=== PATIENT | female | born 1960 | race American Indian/Alaskan Native ===

== ENCOUNTER 2018-12-18 12:09 | Inpatient (IN) | payer MEDICAID, OTHER ==
--- NOTE | 2018-12-18 12:55 | Emergency Department Report ---
HPI - General Chief Complaint: Chest Pain Time Seen by Provider: 12/18/18 12:40 - HPI HPI: Room 3 The patient is a 58-year-old female presenting with a chief complaint of chest pain. Patient states her symptoms began this morning at 04:00 with pain in the left chest described as dull in nature. Patient admits to shortness of breath nausea vomiting with her chest pain but denies diaphoresis. She gets her pain score 10/10. The patient is currently at [facility] for depression after the recent of a family member. Patient states she's never had a stress test or cardiac catheterization Location: Left chest Duration: Constant since 04:00 Quality: Dull Severity: 10/10 Modifying factors: [see above] Context: [see above] Mode of transportation: [not driving] ED Past Medical Hx - Past Medical History Previous Medical History?: Yes Hx Hypertension: Yes Hx Congestive Heart Failure: Yes (with pitting edema) Hx Pulmonary Embolism: Yes (2016) Hx Arthritis: Yes Hx Psychiatric Treatment: Yes (A/V hallucinations, drug use, [place]) Additional medical history: gout - Surgical History Past Surgical History?: Yes Additional Surgical History: tumor left breast, hysterectomy - Family History Family history: no significant - Social History Smoking Status: Never Smoker Substance Use Type: None (denies illicit drug use) - Medications Home Medications: Home Medications Medication Instructions Recorded Confirmed Last Taken Type Amitriptyline [Elavil] 100 mg PO QHS 03/17/15 12/18/18 03/16/15 History Torsemide [Demadex] 100 mg PO QDAY 03/17/15 12/18/18 03/17/15 History Carvedilol [Coreg] 6.25 mg PO BID 12/18/18 12/18/18 Unknown History Gabapentin [Neurontin] 300 mg PO Q8HR 12/18/18 12/18/18 Unknown History Potassium Chloride [K-Dur] 20 meq PO QDAY 12/18/18 12/18/18 Unknown History Rivaroxaban [Xarelto] 20 mg PO QDAY 12/18/18 12/18/18 Unknown History Ziprasidone [Geodon] 60 mg PO BID 12/18/18 12/18/18 Unknown History traZODone [Desyrel] 50 mg PO QHS 12/18/18 12/18/18 Unknown History ED Review of Systems ROS: Stated complaint: CHEST PAIN Other details as noted in HPI Constitutional: denies: diaphoresis Eyes: denies: eye pain ENT: denies: throat pain Respiratory: shortness of breath Cardiovascular: chest pain Endocrine: no symptoms reported Gastrointestinal: nausea, vomiting Genitourinary: denies: dysuria Musculoskeletal: denies: back pain Neurological: denies: headache Physical Exam - Physical Exam Vital Signs: Vital Signs 12/18/18 12:18 Temperature 98.2 F Physical Exam: GENERAL: The patient is well-developed well-nourished female lying on stretcher not appear to be in acute distress. HEENT: Normocephalic. Atraumatic. Extraocular motions are intact. Patient has moist mucous membranes. NECK: Supple. Trachea midline CHEST/LUNGS: Clear to auscultation. There is no respiratory distress noted. HEART/CARDIOVASCULAR: Regular. There is no tachycardia. There is no gallop rub or murmur. ABDOMEN: Abdomen is soft, nontender. Patient has normal bowel sounds. There is no abdominal distention. SKIN: There is no rash. There is 1+ bilateral lower extremity pitting edema. There is no diaphoresis. NEURO: The patient is awake, alert, and oriented. The patient is cooperative. The patient has normal speech MUSCULOSKELETAL: There is no evidence of acute injury. ED Course Vital Signs 12/18/18 12:18 Temperature 98.2 F ED Medical Decision Making - Lab Data Result diagrams: 12/18/18 12:49 12/18/18 12:49 - EKG Data -: EKG Interpreted by Me EKG shows normal: sinus rhythm Rate: normal - EKG Data When compared to previous EKG there are: previous EKG unavailable Interpretation: normal EKG - Radiology Data Radiology results: report reviewed (chest x-ray, CT chest), image reviewed (chest x-ray, CT chest) interpreted by me: Chest x-ray-no focal infiltrates, no pneumothorax [facility] [address] [place] [address] XRay Report Signed Patient: DAWOOD DAVID MR#: [id number] : 1960 Acct:[id number] Age/Sex: 58 / F ADM Date: 12/18/18 Loc: ED Attending Dr: Ordering Physician: REJI DAS MD Date of Service: 12/18/18 Procedure(s): XR chest 1V ap Accession Number(s): [id number] cc: REJI DAS MD Fluoro Time In Minutes: AP CHEST: HISTORY: chest pain AP view of the chest demonstrates a normal mediastinal and cardiac contour with clear lungs and normal bony and soft tissue structures. IMPRESSION: Unremarkable AP chest. Transcribed By: TTR Dictated By: KYM ALAN JR, MD Electronically Authenticated By: KYM ALAN JR, MD Signed Date/Time: 12/18/181313 DD/ TD/TT: 12/18/18 131 [facility] [address] [place] [address] Cat Scan Report Signed Patient: DAWOOD DAVID MR#: [id number] : 1960 Acct:[id number] Age/Sex: 58 / F ADM Date: 12/18/18 Loc: ED Attending Dr: Ordering Physician: REJI DAS MD Date of Service: 12/18/18 Procedure(s): CT angio chest Accession Number(s): [id number] cc: REJI DAS MD CTA CHEST: HISTORY: Chest pain, shortness of breath. COMPARISON: 03/18/15. TECHNIQUE: Helical CT in 1.25mm intervals following IV contrast. Pulmonary embolus protocol. Sagittal and coronal reformatted images. Rotational MIP images. FINDINGS: Contrast bolus is satisfactory. No pulmonary embolus is identified. Thyroid gland: Normal. Tracheobronchial tree: Normal. Esophagus: Normal. Heart: Normal. Pericardium: Normal. Mediastinum: Normal. Lung [place]: Minor linear scarring or atelectasis is noted in the lower lobes. No parenchymal lung disease, nodule or infiltrate. Pleural Spaces: Normal. Musculoskeletal: Intact. Mild thoracic spondylosis. IMPRESSION: No evidence for pulmonary embolus. Unremarkable CT chest with contrast. Transcribed By: TTR Dictated By: KYM ALAN JR, MD Electronically Authenticated By: KYM ALAN JR, MD Signed Date/Time: 12/18/181511 DD/ 09 TD/TT: 12/18/181511 - Differential Diagnosis ACS, pericarditis, CHF exacerbation, GERD, PE Critical care attestation.: If time is entered above; I have spent that time in minutes in the direct care of this critically ill patient, excluding procedure time. ED Disposition Clinical Impression: Chest pain Disposition: OP ADMIT IP TO THIS HOSP Is pt being admited?: Yes Does the pt Need Aspirin: Yes Condition: Fair Instructions: Chest Pain (ED) Time of Disposition: 15:18 (hospitalist paged (Dr Encarnacion))
[2018-12-18] MEDS ORDERED: ZOFRAN IV ONE (12:57)
[2018-12-18] MEDS ORDERED: NITRO-BID 2% TP ONE (12:57)
[2018-12-18] MEDS ORDERED: SUBLIMAZE IV ONE (12:57)
[2018-12-18] MEDS ORDERED: ASPIRIN PO ONE (12:59)
[2018-12-18 13:01] LABS: Basophils # (Auto) 0.1 K/mm3 (0.0-0.1); Basophils % (Auto) 1.3 % (0.0-1.8); Eosinophils # (Auto) 0.2 K/mm3 (0.0-0.4); Eosinophils % (Auto) 5.1 % (0.0-4.3); Hematocrit 40.9 % (30.3-42.9); Hemoglobin 13.7 gm/dl (10.1-14.3); Lymphocytes # (Auto) 1.4 K/mm3 (1.2-5.4); Lymphocytes % (Auto) 30.1 % (13.4-35.0); Mean Corpuscular HGB Conc 34 % (30-34); Mean Corpuscular Volume 92 fl (79-97); Monocytes # (Auto) 0.4 K/mm3 (0.0-0.8); Monocytes % (Auto) 8.9 % (0.0-7.3); Platelet Count 200 K/mm3 (140-440); Red Blood Count 4.44 M/mm3 (3.65-5.03)
--- NOTE | 2018-12-18 13:18 | XRay Report ---
AP CHEST: HISTORY: chest pain AP view of the chest demonstrates a normal mediastinal and cardiac contour with clear lungs and normal bony and soft tissue structures. IMPRESSION: Unremarkable AP chest.
[2018-12-18 13:28] LABS: Alanine Aminotransferase 11 units/L (7-56); Albumin 4.1 g/dL (3.9-5); BUN/Creatinine Ratio 27; Blood Urea Nitrogen 19 mg/dL (7-17); Calcium 9.2 mg/dL (8.4-10.2); Hemolysis Index 8
[2018-12-18 13:28] LABS: Bacteria,Urine 1+ /HPF (Negative); Bilirubin,Urine NEG (Negative); Blood,Urine SM (Negative); Color,Urine Colorless (Yellow); Mucus,Urine FEW /HPF; Protein,Urine <15 mg/dL mg/dL (Negative); Urobilinogen,Urine < 2.0 mg/dL (<2.0); WBC,Urine < 1.0 /HPF (0.0-6.0)
--- NOTE | 2018-12-18 15:16 | Cat Scan Report ---
CTA CHEST: HISTORY: Chest pain, shortness of breath. COMPARISON: 03/18/15. TECHNIQUE: Helical CT in 1.25mm intervals following IV contrast. Pulmonary embolus protocol. Sagittal and coronal reformatted images. Rotational MIP images. FINDINGS: Contrast bolus is satisfactory. No pulmonary embolus is identified. Thyroid gland: Normal. Tracheobronchial tree: Normal. Esophagus: Normal. Heart: Normal. Pericardium: Normal. Mediastinum: Normal. Lung [place]: Minor linear scarring or atelectasis is noted in the lower lobes. No parenchymal lung disease, nodule or infiltrate. Pleural Spaces: Normal. Musculoskeletal: Intact. Mild thoracic spondylosis. IMPRESSION: No evidence for pulmonary embolus. Unremarkable CT chest with contrast.
--- NOTE | 2018-12-18 22:23 | Event Note ---
Date: 12/18/18 See H/p inreports Chest pain r/o ND Positive Stress test at [facility] in AM
[2018-12-18] MEDS ORDERED: SODIUM CHLORIDE FLUSH SYRINGE 10 ML IV PRN (22:25)
[2018-12-18] MEDS ORDERED: TYLENOL PO PRN (22:25)
[2018-12-18] MEDS ORDERED: ZOFRAN IV PRN (22:25)
[2018-12-18] MEDS: COREG PO SCH (23:36)
[2018-12-18] MEDS: PERCOCET 5/325 PO PRN (23:37)
[2018-12-18] MEDS: PEPCID IV SCH (23:37)
[2018-12-18] MEDS: NEURONTIN PO SCH (23:37)
[2018-12-18] MEDS ORDERED: ELAVIL PO SCH (23:45)
[2018-12-18] MEDS: DESYREL PO SCH (23:53)
[2018-12-18] MEDS: GEODON PO SCH (23:54)
[2018-12-19 06:16] LABS: Basophils % (Auto) 0.5 % (0.0-1.8); Eosinophils # (Auto) 0.3 K/mm3 (0.0-0.4); Eosinophils % (Auto) 5.7 % (0.0-4.3); Hematocrit 39.4 % (30.3-42.9); Hemoglobin 13.1 gm/dl (10.1-14.3); Lymphocytes # (Auto) 1.7 K/mm3 (1.2-5.4); Mean Corpuscular HGB Conc 33 % (30-34); Mean Corpuscular Volume 93 fl (79-97); Monocytes # (Auto) 0.6 K/mm3 (0.0-0.8); Monocytes % (Auto) 12.4 % (0.0-7.3); Platelet Count 185 K/mm3 (140-440); Red Blood Count 4.24 M/mm3 (3.65-5.03); Red Cell Distribution Width 16.2 % (13.2-15.2)
[2018-12-19] MEDS: NEURONTIN PO SCH ×3 (06:36→21:46)
[2018-12-19] MEDS: DEMADEX PO SCH (06:36)
[2018-12-19 06:38] LABS: Alanine Aminotransferase 10 units/L (7-56); BUN/Creatinine Ratio 25; Blood Urea Nitrogen 28 mg/dL (7-17); Calcium 8.8 mg/dL (8.4-10.2); Hemolysis Index 13
--- NOTE | 2018-12-19 07:23 | History and Physical Report ---
CHIEF COMPLAINT: Left-sided chest pain since 4 a.m. HISTORY OF PRESENT ILLNESS: A 58-year-old female presents with left-sided chest pain since 4 a.m. The patient went to [facility] Heart office. DICTATION ENDS HERE. JOB# [id number] ERNESTINA/FRANCHESKA
--- NOTE | 2018-12-19 07:30 | History and Physical Report ---
CHIEF COMPLAINT: Left-sided chest pain since 4:00 a.m. HISTORY OF PRESENT ILLNESS: A 48-year-old female, who comes in for left-sided chest pain since 4:00 a.m. ____. Associated with nausea. No diaphoresis, no palpitations. The pain is about 10/10, intermittent in nature. She was recently admitted to [place] for depression after the of a family member. No stress test. Cardiac catheterization in the past. No exacerbating or precipitating factors. PAST MEDICAL HISTORY: Significant for hypertension, CHF, pulmonary embolism, arthritis, psychiatric treatment for auditory and visual hallucinations, drug use, gout. PAST SURGICAL HISTORY: Tumor, left breast and hysterectomy. SOCIAL HISTORY: Does not smoke. No alcohol or drugs. FAMILY HISTORY: Hypertension. CURRENT MEDICATIONS: Coreg 6.25 b.i.d., Xarelto 20 mg once a day, Geodon 60 mg twice a day, trazodone 50 mg at bedtime, amitriptyline 100 mg p.o. at bedtime, and Demadex 100 mg once a day. REVIEW OF SYSTEMS: Significant for left-sided chest pain. No shortness of breath. A 14-point review of systems done. PHYSICAL EXAMINATION: GENERAL: Young elderly female. VITAL SIGNS: Blood pressure is 107/71, temperature is 97.9, pulse is 82, and respiratory rate is 20. HEENT: Unremarkable. Pupils are equal and reactive. NECK: Supple, no lymphadenopathy, no thyromegaly. LUNGS: Clear to auscultation and percussion. Good air entry. CARDIOVASCULAR: S1, S2 heard. No gallop, no murmur, no rub. Apical impulse in left fifth intercostal space and midclavicular line. ABDOMEN: Soft and benign. No hepatosplenomegaly. No guarding, no rigidity. Hernial orifices are normal. EXTREMITIES: Good pedal pulses. No pedal edema. CENTRAL NERVOUS SYSTEM: Alert and oriented x4, nonfocal exam. SKIN: Normal. LABORATORY DATA: Significant for white count of 4800, H and H are 13.7 and hematocrit of 40.9, and platelet count of 200,000. Sodium of 143, potassium of 3.7, chloride of 102, bicarbonate of 25, and BUN and creatinine of 19 and 0.7. LFTs are normal. Urine is normal. EKG shows normal sinus rhythm, no acute ST-T wave changes. Chest x-ray shows no focal infiltrates, no pneumothorax. CT chest is normal. No pulmonary embolism. ASSESSMENT AND PLAN: 1. Chest pain, rule out myocardial infarction, chest pain protocol. Lexiscan in the morning. 2. Hypertension. Continue carvedilol. 3. Peripheral neuropathy. Continue gabapentin. 4. Anticoagulation, reason not clear. Continue Xarelto. 5. Depression. Continue trazodone and Geodon. 6. Deep venous thrombosis prophylaxis, Lovenox 40 mg subcutaneous daily. We will get echocardiogram for ejection fraction. The patient is on torsemide. Unclear about congestive heart failure status. JOB# [id number] ERNESTINA/FRANCHESKA
[2018-12-19] MEDS ORDERED: TORSEMIDE 100 MG PO SCH (10:00)
--- NOTE | 2018-12-19 10:27 | Discharge Summary ---
Providers - Providers Date of Admission: 12/18/18 15:20 Attending physician: ISAURA CAMPUZANO MD Primary care physician: VIBRATOR OPERATOR Hospitalization Reason for admission: chest pain Condition: Stable Hospital course: The patient is a 48-year-old female with past medical history of congestive heart failure, hypertension, history of pulmonary embolism, bilateral knee antr itis, depression previous history of psychosis with VISUAL HALLUCINATION, GOUT AND DRUG USE PRESENTED TO THE HOSPITAL COMPLAINTS OF SHORTNESS OF BREATH WITH ASSOCIATED CHEST DISCOMFORT. PATIENT PRESENTED TO HAVE A STRESS TEST THAT WAS NEGATIVE. SHE INSISTS THAT HER PAIN IS STILL PRESENT AT THIS 6/10 INTENSITY AND IS not WITH NO AGGRAVATED EVENTS. SHE REPORTS THAT THIS ALWAYS HAPPENS WHEN SHE HAS MULTIPLE FLUIDS AND HER BODY THAN NORMAL. The patient was treated with IV Lasix reported improvement in clinical status. Although renal functioning increased patient received gentle hydration prior to discharge recommended to follow-up with primary care physician continue to lose weight and have a repeat BNP in 2-3 days. Patient verbalized understanding. Atypical chest likely secondary to underlying congestive heart failure Congestive heart failure presumed systolic Depression Hypertension Morbid obesity BMI 53.8 [place] secondary to vasomotor nephropathy Disposition: TO HOME OR SELFCARE Time spent for discharge: 35 MINS Core Measure Documentation - Palliative Care Palliative Care/ Comfort Measures: Not Applicable - Core Measures Any of the following diagnoses?: none Exam - Physical Exam Narrative exam: VITAL SIGNS: Reviewed. GENERAL: The patient appeared well nourished and normally developed, morbidly obese. Vital signs as documented. HEAD: No signs of head trauma. EYES: Pupils are equal. Extraocular motions intact. EARS: Hearing grossly intact. MOUTH: Oropharynx is normal. NECK: No adenopathy, no JVD. CHEST: Chest with clear breath sounds bilaterally. No wheezes, rales, or rhonchi. CARDIAC: Regular rate and rhythm. S1 and S2, without murmurs, gallops, or rubs. VASCULAR: Trace pitting Edema. Peripheral pulses normal and equal in all extremities. ABDOMEN: Soft, non tender and non distended. No rebound or guarding, and no masses palpated. Bowel Sounds normal. MUSCULOSKELETAL: Good range of motion of all major joints. Extremities without clubbing, cyanosis. Trace pitting edema. NEUROLOGIC EXAM: Alert and oriented x 3 No focal sensory or strength deficits. Speech normal. Follows commands. PSYCHIATRIC: Mood normal. SKIN: No rash or lesions. - Constitutional Vitals: Temp Pulse Resp BP Pulse Ox 97.9 F 79 20 119/80 92 12/19/18 07:59 12/19/18 07:59 12/19/18 07:59 12/19/18 07:59 12/19/18 07:59 Plan Activity: advance as tolerated, fall precautions Diet: low fat Special Instructions: record daily weights, record daily BP diary Follow up with: PRIMARY CARE, [Primary Care Provider] - 3-5 Days Forms: Discharge Signature Page Prescriptions: oxyCODONE /ACETAMINOPHEN [Percocet 5/325 mg] 1 tab PO Q6H PRN #14 tablet PRN Reason: Pain, Moderate (4-6)
[2018-12-19] MEDS: PEPCID IV SCH (11:09)
[2018-12-19] MEDS ORDERED: LEXISCAN IV ONE ×2 (11:19→11:20)
[2018-12-19] MEDS ORDERED: AFLURIA QUAD 2018-2019 SYRINGE IM ONE (12:00)
[2018-12-19] MEDS ORDERED: PNEUMOVAX 23 IM ONE (12:00)
[2018-12-19] MEDS: COREG PO SCH ×2 (12:59→21:46)
[2018-12-19] MEDS: XARELTO PO SCH (12:59)
[2018-12-19] MEDS: PEPCID PO SCH ×2 (12:59→21:46)
[2018-12-19] MEDS: K-DUR PO SCH (12:59)
[2018-12-19] MEDS: GEODON PO SCH ×2 (13:00→21:45)
[2018-12-19] MEDS: SODIUM CHLORIDE FLUSH SYRINGE 10 ML IV SCH ×2 (13:00→21:47)
[2018-12-19] MEDS: PERCOCET 5/325 PO PRN (13:59)
[2018-12-19] MEDS ORDERED: PERCOCET 5/325 PO PRN (15:33)
--- NOTE | 2018-12-19 15:33 | Progress Note ---
Assessment and Plan Assessment and plan: The patient is a 48-year-old female with past medical history of congestive heart failure, hypertension, history of pulmonary embolism, bilateral knee antritis, depression previous history of psychosis with VISUAL HALLUCINATION, GOUT AND DRUG USE PRESENTED TO THE HOSPITAL COMPLAINTS OF SHORTNESS OF BREATH WITH ASSOCIATED CHEST DISCOMFORT. PATIENT PRESENTED TO HAVE A STRESS TEST THAT WAS NEGATIVE. SHE INSISTS THAT HER PAIN IS STILL PRESENT AT THIS 6/10 INTENSITY AND IS not WITH NO AGGRAVATED EVENTS. SHE REPORTS THAT THIS ALWAYS HAPPENS WHEN SHE HAS MULTIPLE FLUIDS AND HER BODY THAN NORMAL. Atypical chest likely secondary to underlying congestive heart failure Congestive heart failure presumed systolic Depression Hypertension Morbid obesity BMI 53.8 Plan at this time Continue supportive care Heart failure protocol Patient Lasix 40 mg every 8 monitor renal function Continue medications Weightloss counselling, patient reports loss of 20 pounds and working on the rest bedSide commode Anticipate discharge in am plan discussed with patient adn nursing staff. History Interval history: Patient is examined this morning complaints of shortness of breath AND Lower ext edema. she states she is 7 pound over her baseline dry weight. Hospitalist Physical - Physical exam Narrative exam: VITAL SIGNS: Reviewed. GENERAL: The patient appeared well nourished and normally developed, morbidly obese. Vital signs as documented. HEAD: No signs of head trauma. EYES: Pupils are equal. Extraocular motions intact. EARS: Hearing grossly intact. MOUTH: Oropharynx is normal. NECK: No adenopathy, no JVD. CHEST: Chest with clear breath sounds bilaterally. No wheezes, rales, or rhonchi. CARDIAC: Regular rate and rhythm. S1 and S2, without murmurs, gallops, or rubs. VASCULAR: Trace pitting Edema. Peripheral pulses normal and equal in all extremities. ABDOMEN: Soft, non tender and non distended. No rebound or guarding, and no masses palpated. Bowel Sounds normal. MUSCULOSKELETAL: Good range of motion of all major joints. Extremities without clubbing, cyanosis. Trace pitting edema. NEUROLOGIC EXAM: Alert and oriented x 3 No focal sensory or strength deficits. Speech normal. Follows commands. PSYCHIATRIC: Mood normal. SKIN: No rash or lesions. - Constitutional Vitals: Temp Pulse Resp BP Pulse Ox 97.9 F 79 20 127/75 92 12/19/18 07:59 12/19/18 07:59 12/19/18 07:59 12/19/18 11:37 12/19/18 07:59 Results - Labs CBC & Chem 7: 12/19/18 05:57 12/19/18 05:57 Labs: Laboratory Last Values WBC 4.6 K/mm3 (4.5-11.0) 12/19/18 05:57 RBC 4.24 M/mm3 (3.65-5.03) 12/19/18 05:57 Hgb 13.1 gm/dl (10.1-14.3) 12/19/18 05:57 Hct 39.4 % (30.3-42.9) 12/19/18 05:57 MCV 93 fl (79-97) 12/19/18 05:57 MCH 31 pg (28-32) 12/19/18 05:57 MCHC 33 % (30-34) 12/19/18 05:57 RDW 16.2 % (13.2-15.2) H 12/19/18 05:57 Plt Count 185 K/mm3 (140-440) 12/19/18 05:57 Lymph % (Auto) 37.0 % (13.4-35.0) H 12/19/18 05:57 [place] % (Auto) 12.4 % (0.0-7.3) H 12/19/18 05:57 Eos % (Auto) 5.7 % (0.0-4.3) H 12/19/18 05:57 Baso % (Auto) 0.5 % (0.0-1.8) 12/19/18 05:57 Lymph # 1.7 K/mm3 (1.2-5.4) 12/19/18 05:57 [place] # 0.6 K/mm3 (0.0-0.8) 12/19/18 05:57 Eos # 0.3 K/mm3 (0.0-0.4) 12/19/18 05:57 Baso # 0.0 K/mm3 (0.0-0.1) 12/19/18 05:57 Seg Neutrophils % 44.4 % (40.0-70.0) 12/19/18 05:57 Seg Neutrophils # 2.1 K/mm3 (1.8-7.7) 12/19/18 05:57 D-Dimer 4194.10 ng/mlDDU (0-234) H 12/18/18 12:49 Sodium 140 mmol/L (137-145) 12/19/18 05:57 Potassium 4.1 mmol/L (3.6-5.0) 12/19/18 05:57 Chloride 99.5 mmol/L (98-107) 12/19/18 05:57 Carbon Dioxide 27 mmol/L (22-30) 12/19/18 05:57 Anion Gap 18 mmol/L 12/19/18 05:57 BUN 28 mg/dL (7-17) H 12/19/18 05:57 Creatinine 1.1 mg/dL (0.7-1.2) D 12/19/18 05:57 Estimated GFR > 60 ml/min 12/19/18 05:57 BUN/Creatinine Ratio 25 % 12/19/18 05:57 Glucose 107 mg/dL (65-100) H 12/19/18 05:57 Calcium 8.8 mg/dL (8.4-10.2) 12/19/18 05:57 Total Bilirubin 0.20 mg/dL (0.1-1.2) 12/19/18 05:57 AST 13 units/L (5-40) 12/19/18 05:57 ALT 10 units/L (7-56) 12/19/18 05:57 Alkaline Phosphatase 67 units/L (35-129) 12/19/18 05:57 Troponin T < 0.010 ng/mL (0.00-0.029) 12/19/18 05:57 Total Protein 7.1 g/dL (6.3-8.2) 12/19/18 05:57 Albumin 4.0 g/dL (3.9-5) 12/19/18 05:57 Albumin/Globulin Ratio 1.3 % 12/19/18 05:57 Urine Color Colorless (Yellow) 12/18/18 12:53 Urine Turbidity Clear (Clear) 12/18/18 12:53 Urine pH 5.0 (5.0-7.0) 12/18/18 12:53 Ur Specific [place] 1.004 (1.003-1.030) 12/18/18 12:53 Urine Protein <15 mg/dl mg/dL (Negative) 12/18/18 12:53 Urine Glucose (UA) Neg mg/dL (Negative) 12/18/18 12:53 Urine Ketones Neg mg/dL (Negative) 12/18/18 12:53 Urine Blood Sm (Negative) 12/18/18 12:53 Urine Nitrite Neg (Negative) 12/18/18 12:53 Urine Bilirubin Neg (Negative) 12/18/18 12:53 Urine Urobilinogen < 2.0 mg/dL (<2.0) 12/18/18 12:53 Ur Leukocyte Esterase Neg (Negative) 12/18/18 12:53 Urine WBC (Auto) < 1.0 /HPF (0.0-6.0) 12/18/18 12:53 Urine RBC (Auto) 1.0 /HPF (0.0-6.0) 12/18/18 12:53 U Epithel Cells (Auto) 1.0 /HPF (0-13.0) 12/18/18 12:53 Urine Bacteria (Auto) 1+ /HPF (Negative) 12/18/18 12:53 Urine Mucus Few /HPF 12/18/18 12:53 Active Medications - Current Medications Current Medications: Generic Name Dose Route Start Last Admin Trade Name Freq PRN Reason Stop Dose Admin Acetaminophen 650 mg 12/18/18 22:25 Tylenol PO Q4H PRN Pain MILD(1-3)/Fever >100.5/MARQUEZ Carvedilol 6.25 mg 12/18/18 23:00 12/19/18 12:59 Coreg PO 6.25 mg BID JUSTUS Administration Famotidine 20 mg 12/19/18 11:00 12/19/18 12:59 Pepcid PO 20 mg BID JUSTUS Administration Gabapentin 300 mg 12/18/18 23:00 12/19/18 13:53 Neurontin PO 300 mg Q8HR JUSTUS Administration Ondansetron HCl 4 mg 12/18/18 22:25 Zofran IV Q8H PRN Nausea And Vomiting Potassium Chloride 20 meq 12/19/18 10:00 12/19/18 12:59 K-Dur PO 20 meq QDAY JUSTUS Administration Rivaroxaban 20 mg 12/19/18 10:00 12/19/18 12:59 Xarelto PO 20 mg QDAY JUSTUS Administration Protocol Sodium Chloride 10 ml 12/19/18 10:00 12/19/18 13:00 Sodium Chloride Flush Syringe 10 Ml IV 10 ml BID JUSTUS Administration Sodium Chloride 10 ml 12/18/18 22:25 Sodium Chloride Flush Syringe 10 Ml IV PRN PRN LINE FLUSH Torsemide 100 mg 12/19/18 06:00 12/19/18 06:36 Demadex PO 100 mg DAILY@0600 JUSTUS Administration Trazodone HCl 50 mg 12/18/18 23:45 12/18/18 23:53 Desyrel PO 50 mg QHS JUSTUS Administration Ziprasidone 60 mg 12/18/18 23:00 12/19/18 13:00 Geodon PO 60 mg BID JUSTUS Administration
[2018-12-19] MEDS: LASIX IV SCH (17:18)
[2018-12-19] MEDS: DESYREL PO SCH (21:45)
[2018-12-19] MEDS ORDERED: AMITRIPTYLINE 100 MG PO SCH (22:00)
--- NOTE | 2018-12-19 22:25 | Treadmill Report ---
THALLIUM STRESS TEST LEFT VENTRICLE: Left ventricular chamber size is within normal spread. Perfusion study demonstrates homogeneous uptake of the tracer in all segments, no significant defects identified. Gated analysis demonstrates normal left ventricular systolic function, ejection fraction 58%. CONCLUSION: Normal myocardial perfusion study. JOB# [id number] CA/NTS
[2018-12-20] MEDS: LASIX IV SCH ×2 (00:55→05:49)
[2018-12-20] MEDS: NEURONTIN PO SCH ×2 (05:49→14:05)
[2018-12-20 06:16] LABS: Calcium 8.7 mg/dL (8.4-10.2)
[2018-12-20] MEDS: DEMADEX PO SCH (08:02)
[2018-12-20 08:39] VITALS: BP 149/97
[2018-12-20] MEDS: K-DUR PO SCH (09:49)
[2018-12-20] MEDS: XARELTO PO SCH (09:49)
[2018-12-20] MEDS: COREG PO SCH (09:49)
[2018-12-20] MEDS: GEODON PO SCH (09:49)
[2018-12-20] MEDS: PEPCID PO SCH (09:50)
[2018-12-20] MEDS: SODIUM CHLORIDE FLUSH SYRINGE 10 ML IV SCH (09:50)
[2018-12-20] MEDS ORDERED: NACL 0.9% 250ML 250 ML IV ONE (12:30)
== END 2018-12-20 14:00 | disposition home or self-care (01) | DRG 291 ==
LOC: ED 12:09 → 4A 15:20
PROVIDERS: ADMIT Internal Medicine; ATTEND Internal Medicine
PROC: 3E0234Z Introduction of Serum, Toxoid and Vaccine into Muscle, Percutaneous Approach (ICD-10-PCS; principal; 2018-12-19)
DX: I11.0 Hypertensive heart disease with heart failure (principal); N17.0 Acute kidney failure with tubular necrosis; Z68.43 Body mass index [BMI] 50.0-59.9, adult; I50.23 Acute on chronic systolic (congestive) heart failure; R07.9 Chest pain, unspecified; E66.01 Morbid (severe) obesity due to excess calories; M10.9 Gout, unspecified; G62.9 Polyneuropathy, unspecified; F32.9 Major depressive disorder, single episode, unspecified; M17.0 Bilateral primary osteoarthritis of knee; Z86.711 Personal history of pulmonary embolism; Z90.710 Acquired absence of both cervix and uterus; Z82.49 Family history of ischemic heart disease and other diseases of the circulatory system; Z23 Encounter for immunization
CPT/HCPCS: 36415; 71045; 71275; 78452; 80048; 80053; 81001; 84484; 85025; 85379; 90686; 90732; 93005; 93010; 93017; 93306; 96374; G0378; A9502; J1940; J2405; J2785; J3010; J7050; Q9967

== ENCOUNTER 2018-12-24 16:59 | Observation (INO) | payer MEDICAID ==
[2018-12-24] MEDS ORDERED: ASPIRIN PO ONE (17:48)
--- NOTE | 2018-12-24 17:50 | Emergency Department Report ---
ED Chest Pain HPI - General Chief Complaint: Chest Pain Stated Complaint: CHEST PAIN/RICHELLE Time Seen by Provider: 12/24/18 17:47 Source: patient, EMS Mode of arrival: Stretcher Limitations: No Limitations - History of Present Illness Initial Comments: Patient is a 58-year-old female that presents emergency with complaints of chest pain or shortness of breath. Patient states her chest pain and shortness of breath started 24 hours ago. Patient is also complaining of bilateral lower extremity edema. Patient states she was discharged from [facility] for suicidal ideations yesterday. Patient denies suicidal ideations at this time. Patient states her chest pain is a 10 out of 10 and is now radiating. Patient states the pain is better with rest and worse with exertion. Patient states her shortness of breath is better with rest and worse with exertion. Patient states she has a history of CHF. Patient states recently had a stress test a week ago and it was abnormal. MD Complaint: chest pain -: Sudden Onset: during rest Pain Location: substernal, left chest Pain Radiation: none Severity: severe Severity scale (0 -10): 10 Quality: pressure, squeezing Consistency: constant Improves With: rest Worsens With: exertion re: dyspnea. denies: nausea, vomting, diaphoresis, sense of impending doom Other Symptoms: leg swelling. denies: cough, fever, syncope, rash, acid taste in mouth, palpitations, burping Treatments Prior to Arrival: none Aspirin use within the Past 7 Days: (1) Yes - Related Data On Oral Contraceptives: No Home Medications Medication Instructions Recorded Confirmed Last Taken Amitriptyline [Elavil] 200 mg PO QHS 03/17/15 12/25/18 12/23/18 21:00 Torsemide [Demadex] 100 mg PO QDAY 03/17/15 12/25/18 12/24/18 11:30 Carvedilol [Coreg] 6.25 mg PO BID 12/18/18 12/25/18 12/24/18 11:30 Gabapentin [Neurontin] 300 mg PO Q8HR 12/18/18 12/25/18 12/24/18 11:30 Potassium Chloride [K-Dur] 20 meq PO QDAY 12/18/18 12/25/18 12/24/18 11:30 Rivaroxaban [Xarelto] 20 mg PO QDAY 12/18/18 12/25/18 12/23/18 21:00 Ziprasidone [Geodon] 60 mg PO BID 12/18/18 12/25/18 12/24/18 11:30 traZODone [Desyrel] 50 mg PO QHS 12/18/18 12/25/18 12/23/18 21:00 Oxycodone HCl [oxyCODONE TAB] 10 mg PO Q6H PRN 12/25/18 12/25/18 12/24/18 11:30 Previous Rx's Medication Instructions Recorded Last Taken Type oxyCODONE /ACETAMINOPHEN [Percocet 1 tab PO Q6H PRN #14 tablet 12/19/18 1 Day Ago Rx 5/325 mg] ~12/24/18 Allergies Allergy/AdvReac Type Severity Reaction Status Date / Time No Known Allergies Allergy Unverified 03/10/14 15:52 Heart Score - HEART Score History: Moderately suspicious EKG: Normal Age: 45-65 Risk factors: 1-2 risk factors Troponin: < normal limit HEART Score: 3 ED Review of Systems ROS: Stated complaint: CHEST PAIN/RICHELLE Other details as noted in HPI Constitutional: denies: chills, fever Eyes: denies: eye pain, eye discharge, vision change ENT: denies: ear pain, throat pain Respiratory: shortness of breath, SOB with exertion, SOB at rest. denies: cough, wheezing Cardiovascular: chest pain, edema. denies: palpitations Endocrine: no symptoms reported Gastrointestinal: denies: abdominal pain, nausea, diarrhea Genitourinary: denies: urgency, dysuria, discharge Musculoskeletal: denies: back pain, joint swelling, arthralgia Skin: denies: rash, lesions Neurological: denies: headache, weakness, paresthesias Psychiatric: denies: anxiety, depression Hematological/Lymphatic: denies: easy bleeding, easy bruising ED Past Medical Hx - Past Medical History Previous Medical History?: Yes Hx Hypertension: Yes Hx Congestive Heart Failure: Yes (with pitting edema) Hx Pulmonary Embolism: Yes (2016) Hx Arthritis: Yes Hx Psychiatric Treatment: Yes (A/V hallucinations, drug use, [place]) Additional medical history: gout - Surgical History Past Surgical History?: Yes Additional Surgical History: tumor left breast, hysterectomy - Family History Family history: hypertension - Social History Smoking Status: Never Smoker Substance Use Type: None - Medications Home Medications: Home Medications Medication Instructions Recorded Confirmed Last Taken Type Amitriptyline [Elavil] 200 mg PO QHS 03/17/15 12/25/18 12/23/18 21:00 History Torsemide [Demadex] 100 mg PO QDAY 03/17/15 12/25/18 12/24/18 11:30 History Carvedilol [Coreg] 6.25 mg PO BID 12/18/18 12/25/18 12/24/18 11:30 History Gabapentin [Neurontin] 300 mg PO Q8HR 12/18/18 12/25/18 12/24/18 11:30 History Potassium Chloride [K-Dur] 20 meq PO QDAY 12/18/18 12/25/18 12/24/18 11:30 History Rivaroxaban [Xarelto] 20 mg PO QDAY 12/18/18 12/25/18 12/23/18 21:00 History Ziprasidone [Geodon] 60 mg PO BID 12/18/18 12/25/18 12/24/18 11:30 History traZODone [Desyrel] 50 mg PO QHS 12/18/18 12/25/18 12/23/18 21:00 History oxyCODONE /ACETAMINOPHEN [Percocet 1 tab PO Q6H PRN #14 tablet 12/19/18 12/25/18 1 Day Ago Rx 5/325 mg] ~12/24/18 Oxycodone HCl [oxyCODONE TAB] 10 mg PO Q6H PRN 12/25/18 12/25/18 12/24/18 11:30 History ED Physical Exam - General Limitations: No Limitations General appearance: alert, in no apparent distress - Head Head exam: Present: atraumatic, normocephalic - Eye Eye exam: Present: normal appearance - ENT ENT exam: Present: mucous membranes moist - Neck Neck exam: Present: normal inspection - Respiratory Respiratory exam: Present: normal lung sounds bilaterally. Absent: respiratory distress - Cardiovascular Cardiovascular Exam: Present: regular rate, normal rhythm. Absent: systolic murmur, diastolic murmur, rubs, gallop - GI/Abdominal GI/Abdominal exam: Present: soft, normal bowel sounds - Extremities Exam Extremities exam: Present: pedal edema - Back Exam Back exam: Present: normal inspection - Neurological Exam Neurological exam: Present: alert, oriented X3 - Psychiatric Psychiatric exam: Present: normal affect, normal mood - Skin Skin exam: Present: warm, dry, intact, normal color. Absent: rash ED Course Vital Signs 12/24/18 12/24/18 12/24/18 17:28 17:30 17:46 Pulse Rate 92 H Respiratory 11 L 14 Rate Blood Pressure 139/88 139/88 O2 Sat by Pulse 93 90 87 Oximetry 12/24/18 12/24/18 12/24/18 18:00 18:16 18:30 Pulse Rate 84 89 90 Respiratory 17 25 H 32 H Rate Blood Pressure 139/88 139/88 139/88 O2 Sat by Pulse 96 98 86 Oximetry 12/24/18 12/24/18 12/24/18 18:45 19:00 19:16 Pulse Rate 88 81 89 Respiratory 20 14 12 Rate Blood Pressure 122/81 146/92 146/92 O2 Sat by Pulse 96 Oximetry 12/24/18 12/24/18 12/24/18 19:30 19:45 20:00 Pulse Rate 82 81 84 Respiratory 19 13 10 L Rate Blood Pressure 139/89 143/95 143/90 O2 Sat by Pulse 98 92 Oximetry 12/24/18 12/24/18 12/24/18 20:16 20:30 20:46 Pulse Rate 81 86 82 Respiratory 20 16 15 Rate Blood Pressure 143/83 142/89 120/71 O2 Sat by Pulse 99 100 100 Oximetry 12/24/18 12/24/18 12/24/18 21:00 21:15 21:30 Pulse Rate 84 82 81 Respiratory 19 14 12 Rate Blood Pressure 138/86 147/91 138/84 O2 Sat by Pulse 99 100 100 Oximetry 12/24/18 12/24/18 12/24/18 21:45 22:00 22:16 Pulse Rate 80 85 83 Respiratory 12 15 12 Rate Blood Pressure 127/90 140/89 112/73 O2 Sat by Pulse 100 96 96 Oximetry 12/24/18 12/24/18 12/24/18 22:18 22:30 22:46 Pulse Rate 81 82 84 Respiratory 14 15 21 Rate Blood Pressure 112/73 123/93 88/72 O2 Sat by Pulse 99 91 99 Oximetry 12/24/18 12/24/18 12/24/18 23:00 23:15 23:30 Pulse Rate 84 82 Respiratory 17 16 Rate Blood Pressure 147/81 141/81 119/75 O2 Sat by Pulse 100 100 100 Oximetry 12/24/18 12/25/18 12/25/18 23:45 00:00 00:15 Pulse Rate Respiratory Rate Blood Pressure 130/82 141/85 130/82 O2 Sat by Pulse 100 100 Oximetry 12/25/18 12/25/18 00:30 00:46 Pulse Rate 89 87 Respiratory 16 13 Rate Blood Pressure 128/76 125/56 O2 Sat by Pulse 100 100 Oximetry - Reevaluation(s) Reevaluation #1: Discussed all results with patient. Patient agrees with plan of care and admission. Patient was admitted to the hospitalist service. 12/24/18 20:13 - Consultations Consultation #1: Hospitalist consultation for admission. Hospitalist to admit patient. 12/24/18 20:13 ZULY score - Zuly Score Age > 65: (0) No Aspirin use within the Past 7 Days: (1) Yes 3 or more CAD Risk Factors: (0) No 2 or more Angina events in past 24 hrs: (1) Yes Known CAD with more than 50% Stenosis: (0) No Elevated Cardiac Markers: (0) No ST Deviation Greater than 0.5mm: (0) No ZULY Score: 2 ED Medical Decision Making - Lab Data Result diagrams: 12/24/18 19:28 12/24/18 19:28 - EKG Data -: EKG Interpreted by Me EKG shows normal: sinus rhythm, axis, intervals, QRS complexes, ST-T waves Rate: normal - Radiology Data Radiology results: report reviewed, image reviewed interpreted by me: Negative chest x-ray PROCEDURE: XR CHEST 1V AP TECHNIQUE: Single AP chest HISTORY: Chest Pain COMPARISONS: There are prior studies however images are not available for comparison at this time FINDINGS: Cardiac and mediastinal contours are unremarkable. Mild atelectasis noted at the lung bases. No confluent infiltrates identified. Pulmonary vasculature is unremarkable. No pleural fluid collection seen. IMPRESSION: Mild atelectasis at the lung bases Otherwise negative study. - Medical Decision Making Patient is a 58-year-old female that presents with complaints of chest pain shortness of breath. Patient states she has a history of CHF. Patient states she also had a recent stress test that was abnormal. Patient was admitted to the hospitalist service for evaluation treatment. Labs unremarkable. Chest x- ray negative. Patient will be admitted to rule out ACS. - Differential Diagnosis ACS. Chest pain. CHF. Shortness of breath. Volume overload. Edema. Critical Care Time: Yes Critical care attestation.: If time is entered above; I have spent that time in minutes in the direct care of this critically ill patient, excluding procedure time. Critical Care Time: 35 minutes ED Disposition Clinical Impression: SOB (shortness of breath) Chest pain Qualifiers: Chest pain type: unspecified Qualified Code(s): R07.9 - Chest pain, unspecified Edema Qualifiers: Edema type: unspecified Qualified Code(s): R60.9 - Edema, unspecified Disposition: DC-09 OP ADMIT IP TO THIS HOSP Is pt being admited?: Yes Does the pt Need Aspirin: No Condition: Critical Time of Disposition: 20:18
[2018-12-24 19:39] LABS: Hematocrit 40.3 % (30.3-42.9); Hemoglobin 13.4 gm/dl (10.1-14.3); Mean Corpuscular HGB Conc 33 % (30-34); Mean Corpuscular Volume 93 fl (79-97); Platelet Count 185 K/mm3 (140-440); Red Blood Count 4.32 M/mm3 (3.65-5.03); Red Cell Distribution Width 15.9 % (13.2-15.2)
[2018-12-24 19:53] LABS: Creatine Kinase MB 1.3 ng/mL (0.0-4.0)
[2018-12-24 19:55] LABS: Alanine Aminotransferase 12 units/L (7-56); Albumin 4.3 g/dL (3.9-5); BUN/Creatinine Ratio 35; Blood Urea Nitrogen 28 mg/dL (7-17); Calcium 9.5 mg/dL (8.4-10.2); Hemolysis Index 34
[2018-12-24 20:18] LABS: Basophils % (Manual) 0 % (0.0-1.8); Total Cells Counted 100
[2018-12-24 20:19] LABS: Platelet Estimate Consistent w Auto; Target Cells Few
--- NOTE | 2018-12-24 20:21 | XRay Report ---
PROCEDURE: XR CHEST 1V AP TECHNIQUE: Single AP chest HISTORY: Chest Pain COMPARISONS: There are prior studies however images are not available for comparison at this time FINDINGS: Cardiac and mediastinal contours are unremarkable. Mild atelectasis noted at the lung bases. No confl uent infiltrates identified. Pulmonary vasculature is unremarkable. No pleural fluid collection seen. IMPRESSION: Mild atelectasis at the lung bases Otherwise negative study. This document is electronically signed by Emil Mata MD., December 24 2018 08:19:20 PM ET
[2018-12-24] MEDS ORDERED: PERCOCET 5/325 PO PRN (21:58)
[2018-12-24] MEDS ORDERED: ZOFRAN IV PRN (21:58)
[2018-12-24] MEDS ORDERED: SODIUM CHLORIDE FLUSH SYRINGE 10 ML IV PRN (21:58)
[2018-12-24] MEDS ORDERED: TYLENOL PO PRN (21:58)
--- NOTE | 2018-12-24 21:59 | History and Physical Report ---
History of Present Illness Date of examination: 12/24/18 History of present illness: 58 -year-old woman at age of hypertension, CHF, osteoarthritis comes emergency room with complaints of chest pain. She was just discharged from record yesterday for admission for depression. Her pain is in the left chest which started yesterday, dull pain, constant, intensity 5/10, radiating to the left shoulder, cannot identify exacerbating or relieving factors. Denies nausea or vomiting, shortness breath, diaphoresis or palpitation. She was admitted in December 19, she had a stress test done which was negative. Review of systems Constitutional: no weight loss, chills, fever Ears, eyes, nose, mouth and throat: no nasal congestion, no nasal discharge, no sinus pressure, no vision change, no red eye. Neck: No neck pain or rigidity. Cardiovascular: no palpitations, +chest pain Respiratory: no cough, shortness of breath Gastrointestinal: no hematochezia, abdominal pain Genitourinary : no frequency , no hematuria Musculoskeletal: no joint swelling or muscle ache Integumentary: no rash, no pruritis Neurological: no parathesias, no focal weakness Endocrine: no cold or heat intolerance, no polyuria or polydipsia Hematologic/Lymphatic: no easy bruising, no easy bleeding, no gland swelling Allergic/Immunologic: no urticaria, no angioedema. PAST MEDICAL HISTORY:hypertension, CHF, osteoarthritis PAST SURGICAL HISTORY: Hysterectomy, right leg, tumor removed from breast SOCIAL HISTORY: Denies alcohol, drugs, tobacco FAMILY HISTORY: Hypertension Medications and Allergies Allergies Allergy/AdvReac Type Severity Reaction Status Date / Time No Known Allergies Allergy Unverified 03/10/14 15:52 Home Medications Medication Instructions Recorded Confirmed Last Taken Type Amitriptyline [Elavil] 100 mg PO QHS 03/17/15 12/18/18 03/16/15 History Torsemide [Demadex] 100 mg PO QDAY 03/17/15 12/18/18 03/17/15 History Carvedilol [Coreg] 6.25 mg PO BID 12/18/18 12/18/18 Unknown History Gabapentin [Neurontin] 300 mg PO Q8HR 12/18/18 12/18/18 Unknown History Potassium Chloride [K-Dur] 20 meq PO QDAY 12/18/18 12/18/18 Unknown History Rivaroxaban [Xarelto] 20 mg PO QDAY 12/18/18 12/18/18 Unknown History Ziprasidone [Geodon] 60 mg PO BID 12/18/18 12/18/18 Unknown History traZODone [Desyrel] 50 mg PO QHS 12/18/18 12/18/18 Unknown History oxyCODONE /ACETAMINOPHEN [Percocet 1 tab PO Q6H PRN #14 tablet 12/19/18 Unknown Rx 5/325 mg] Exam - Physical Exam Narrative exam: General Apperance: The patient lying in bed, breathing comfortable HEENT: Normocephalic, atraumatic. Pupils equally round and reactive to light, EOMI, no sclericterus or JVD or thyromegaly or nodule. , no carotid bruit, mucous membranes moist, no exudate or erythema Heart: S1-S2, regular is rhythm Lungs: Clear to auscultation bilaterally, breathing comfortable Abdomen: Positive bowel sounds, soft, nontender, nondistended, no organomegaly Extremities: No edema cyanosis clubbing Skin: no rash, nodule, warm and dry Neuro: cranial nerves 2-12 intact, speech is fluent, motor/sensory intact Results - Labs CBC & Chem 7: 12/24/18 19:28 12/24/18 19:28 Labs: Abnormal lab results 12/24/18 12/24/18 Range/Units 19:28 19:28 RDW 15.9 H (13.2-15.2) % Lymphocytes % (Manual) 36.0 H (13.4-35.0) % BUN 28 H (7-17) mg/dL - Imaging and Cardiology EKG: image reviewed Chest x-ray: report reviewed Assessment and Plan Assessment Chest pain hypertension CHF, stable osteoarthritis H/o pulmonary emboli Plan Admit to medicine Check cardiac enzymes, consult cardiology Continue appropriate outpatient medications DVT prophylaxis, percocet for pain
[2018-12-24] MEDS: SODIUM CHLORIDE FLUSH SYRINGE 10 ML IV SCH (22:23)
[2018-12-24] MEDS ORDERED: PERCOCET 5/325 ONE (22:32)
[2018-12-24] MEDS: PERCOCET 5/325 PO PRN (22:41)
[2018-12-25 05:44] LABS: Eosinophils # (Auto) 0.2 K/mm3 (0.0-0.4); Eosinophils % (Auto) 4.2 % (0.0-4.3); Hematocrit 37.9 % (30.3-42.9); Hemoglobin 12.5 gm/dl (10.1-14.3); Lymphocytes # (Auto) 1.6 K/mm3 (1.2-5.4); Lymphocytes % (Auto) 39.7 % (13.4-35.0); Mean Corpuscular HGB Conc 33 % (30-34); Mean Corpuscular Volume 93 fl (79-97); Monocytes # (Auto) 0.7 K/mm3 (0.0-0.8); Monocytes % (Auto) 15.8 % (0.0-7.3); Platelet Count 176 K/mm3 (140-440); Red Blood Count 4.07 M/mm3 (3.65-5.03); Red Cell Distribution Width 15.9 % (13.2-15.2)
[2018-12-25] MEDS ORDERED: PERCOCET 5/325 ONE (05:53)
[2018-12-25 06:07] LABS: BUN/Creatinine Ratio 36; Blood Urea Nitrogen 25 mg/dL (7-17); Calcium 9.3 mg/dL (8.4-10.2); Hemolysis Index 14
[2018-12-25] MEDS: PERCOCET 5/325 PO PRN ×4 (06:12→18:27)
--- NOTE | 2018-12-25 09:40 | Progress Note ---
Assessment and Plan Assessment and plan: Chest pain. Continue chest pain protocol. Cardiology consultation pending. Recent stress thallium on 12/19/18 was normal. Follow cardiac isoenzymes and serial EKGs. Patient may need cardiac catheterization given her recent normal stress thallium and recurrent chest pain. Defer to cardiology. Hypertension. Resume antihypertensive medications. Chronic Diastolic heart failure, compensated. Echocardiogram completed on 12/19/18 revealed global left tracheal systolic function normal with EF of 50-55%. Mild concentric left ventricular hypertrophy. Osteoarthritis. Pain control. History of PE. On xarelto History Interval history: No new issues overnight. Patient still complains of chest pain. Hospitalist Physical - Constitutional Vitals: Temp Pulse Resp BP Pulse Ox 97.9 F 74 16 141/84 98 12/25/18 08:18 12/25/18 08:18 12/25/18 08:18 12/25/18 08:18 12/25/18 08:18 General appearance: Present: no acute distress, well-nourished - EENT Eyes: Present: PERRL, EOM intact ENT: hearing intact, clear oral mucosa, dentition normal - Neck Neck: Present: supple, normal ROM - Respiratory Respiratory effort: normal Respiratory: bilateral: CTA - Cardiovascular Rhythm: regular Heart Sounds: Present: S1 & S2. Absent: gallop, rub - Extremities Extremities: no ischemia, No edema, Full ROM - Abdominal General gastrointestinal: soft, non-tender, non-distended, normal bowel sounds - Integumentary Integumentary: Present: clear, warm, dry - Neurologic Neurologic: CNII-XII intact, moves all extremities Results - Labs CBC & Chem 7: 12/25/18 05:22 12/25/18 05:22 Labs: Laboratory Last Values WBC 4.1 K/mm3 (4.5-11.0) L 12/25/18 05:22 RBC 4.07 M/mm3 (3.65-5.03) 12/25/18 05:22 Hgb 12.5 gm/dl (10.1-14.3) 12/25/18 05:22 Hct 37.9 % (30.3-42.9) 12/25/18 05:22 MCV 93 fl (79-97) 12/25/18 05:22 MCH 31 pg (28-32) 12/25/18 05:22 MCHC 33 % (30-34) 12/25/18 05:22 RDW 15.9 % (13.2-15.2) H 12/25/18 05:22 Plt Count 176 K/mm3 (140-440) 12/25/18 05:22 Lymph % (Auto) 39.7 % (13.4-35.0) H 12/25/18 05:22 Fountain % (Auto) 15.8 % (0.0-7.3) H 12/25/18 05:22 Eos % (Auto) 4.2 % (0.0-4.3) 12/25/18 05:22 Baso % (Auto) 1.0 % (0.0-1.8) 12/25/18 05:22 Lymph # 1.6 K/mm3 (1.2-5.4) 12/25/18 05:22 Fountain # 0.7 K/mm3 (0.0-0.8) 12/25/18 05:22 Eos # 0.2 K/mm3 (0.0-0.4) 12/25/18 05:22 Baso # 0.0 K/mm3 (0.0-0.1) 12/25/18 05:22 Add Manual Diff Complete 12/24/18 19:28 Total Counted 100 12/24/18 19:28 Seg Neutrophils % 39.3 % (40.0-70.0) L 12/25/18 05:22 Seg Neuts % (Manual) 56.0 % (40.0-70.0) 12/24/18 19:28 Band Neutrophils % 0 % 12/24/18 19:28 Lymphocytes % (Manual) 36.0 % (13.4-35.0) H 12/24/18 19:28 Reactive Lymphs % (Man) 0 % 12/24/18 19:28 Monocytes % (Manual) 7.0 % (0.0-7.3) 12/24/18 19:28 Eosinophils % (Manual) 1.0 % (0.0-4.3) 12/24/18 19:28 Basophils % (Manual) 0 % (0.0-1.8) 12/24/18 19:28 Metamyelocytes % 0 % 12/24/18 19:28 Myelocytes % 0 % 12/24/18 19:28 Promyelocytes % 0 % 12/24/18 19:28 Blast Cells % 0 % 12/24/18 19:28 Nucleated RBC % Not Reportable 12/24/18 19:28 Seg Neutrophils # 1.6 K/mm3 (1.8-7.7) L 12/25/18 05:22 Seg Neutrophils # Man 3.0 K/mm3 (1.8-7.7) 12/24/18 19:28 Band Neutrophils # 0.0 K/mm3 12/24/18 19:28 Lymphocytes # (Manual) 1.9 K/mm3 (1.2-5.4) 12/24/18 19:28 Abs React Lymphs (Man) 0.0 K/mm3 12/24/18 19:28 Monocytes # (Manual) 0.4 K/mm3 (0.0-0.8) 12/24/18 19:28 Eosinophils # (Manual) 0.1 K/mm3 (0.0-0.4) 12/24/18 19:28 Basophils # (Manual) 0.0 K/mm3 (0.0-0.1) 12/24/18 19:28 Metamyelocytes # 0.0 K/mm3 12/24/18 19:28 Myelocytes # 0.0 K/mm3 12/24/18 19:28 Promyelocytes # 0.0 K/mm3 12/24/18 19:28 Blast Cells # 0.0 K/mm3 12/24/18 19:28 WBC Morphology Not Reportable 12/24/18 19:28 Hypersegmented Neuts Not Reportable 12/24/18 19:28 Hyposegmented Neuts Not Reportable 12/24/18 19:28 Hypogranular Neuts Not Reportable 12/24/18 19:28 Smudge Cells Not Reportable 12/24/18 19:28 Toxic Granulation Not Reportable 12/24/18 19:28 Toxic Vacuolation Not Reportable 12/24/18 19:28 Dohle Bodies Not Reportable 12/24/18 19:28 Pelger-Huet Anomaly Not Reportable 12/24/18 19:28 Chris Rods Not Reportable 12/24/18 19:28 Platelet Estimate Consistent w auto 12/24/18 19:28 Clumped Platelets Not Reportable 12/24/18 19:28 Plt Clumps, EDTA Not Reportable 12/24/18 19:28 Large Platelets Not Reportable 12/24/18 19:28 Giant Platelets Not Reportable 12/24/18 19:28 Platelet Satelliting Not Reportable 12/24/18 19:28 Plt Morphology Comment Not Reportable 12/24/18 19:28 RBC Morphology Not Reportable 12/24/18 19:28 Dimorphic RBCs Not Reportable 12/24/18 19:28 Polychromasia Not Reportable 12/24/18 19:28 Hypochromasia Not Reportable 12/24/18 19:28 Poikilocytosis Not Reportable 12/24/18 19:28 Anisocytosis Not Reportable 12/24/18 19:28 Microcytosis Not Reportable 12/24/18 19:28 Macrocytosis Not Reportable 12/24/18 19:28 Spherocytes Not Reportable 12/24/18 19:28 Pappenheimer Bodies Not Reportable 12/24/18 19:28 Sickle Cells Not Reportable 12/24/18 19:28 Target Cells Few 12/24/18 19:28 Tear Drop Cells Not Reportable 12/24/18 19:28 Ovalocytes Not Reportable 12/24/18 19:28 Helmet Cells Not Reportable 12/24/18 19:28 Ram-Brinson Bodies Not Reportable 12/24/18 19:28 [place] Rings Not Reportable 12/24/18 19:28 Sarah Cells Not Reportable 12/24/18 19:28 Bite Cells Not Reportable 12/24/18 19:28 Crenated Cell Not Reportable 12/24/18 19:28 Elliptocytes Not Reportable 12/24/18 19:28 Acanthocytes (Spur) Not Reportable 12/24/18 19:28 Rouleaux Not Reportable 12/24/18 19:28 Hemoglobin C Crystals Not Reportable 12/24/18 19:28 Schistocytes Not Reportable 12/24/18 19:28 Malaria parasites Not Reportable 12/24/18 19:28 Goyo Bodies Not Reportable 12/24/18 19:28 Hem Pathologist Commnt No 12/24/18 19:28 Sodium 139 mmol/L (137-145) 12/25/18 05:22 Potassium 3.8 mmol/L (3.6-5.0) 12/25/18 05:22 Chloride 99.5 mmol/L (98-107) 12/25/18 05:22 Carbon Dioxide 27 mmol/L (22-30) 12/25/18 05:22 Anion Gap 16 mmol/L 12/25/18 05:22 BUN 25 mg/dL (7-17) H 12/25/18 05:22 Creatinine 0.7 mg/dL (0.7-1.2) 12/25/18 05:22 Estimated GFR > 60 ml/min 12/25/18 05:22 BUN/Creatinine Ratio 36 % 12/25/18 05:22 Glucose 108 mg/dL (65-100) H 12/25/18 05:22 Calcium 9.3 mg/dL (8.4-10.2) 12/25/18 05:22 Total Bilirubin 0.20 mg/dL (0.1-1.2) 12/24/18 19:28 AST 19 units/L (5-40) 12/24/18 19:28 ALT 12 units/L (7-56) 12/24/18 19:28 Alkaline Phosphatase 68 units/L (35-129) 12/24/18 19:28 Total Creatine Kinase 105 units/L (30-135) 12/24/18 19:28 CK-MB (CK-2) 1.3 ng/mL (0.0-4.0) 12/24/18 19:28 CK-MB (CK-2) Rel Index 1.2 (0-4) 12/24/18 19:28 Troponin T < 0.010 ng/mL (0.00-0.029) 12/24/18 22:46 NT-Pro-B Natriuret Pep 38.63 pg/mL (0-900) 12/24/18 19:28 Total Protein 7.0 g/dL (6.3-8.2) 12/24/18 19:28 Albumin 4.3 g/dL (3.9-5) 12/24/18 19:28 Albumin/Globulin Ratio 1.6 % 12/24/18 19:28 Active Medications - Current Medications Current Medications: Generic Name Dose Route Start Last Admin Trade Name Freq PRN Reason Stop Dose Admin Acetaminophen 650 mg 12/24/18 21:58 Tylenol PO Q4H PRN Pain MILD(1-3)/Fever >100.5/MARQUEZ Albuterol/Ipratropium 1 ampul 12/25/18 02:00 Duoneb *Not For Prn Use* IH Q6HRT [facility] Amitriptyline HCl 200 mg 12/25/18 22:00 Elavil PO QHS [facility] Carvedilol 6.25 mg 12/25/18 10:00 Coreg PO BID [facility] Gabapentin 300 mg 12/25/18 14:00 Neurontin PO Q8HR [facility] Ondansetron HCl 4 mg 12/24/18 21:58 Zofran IV Q8H PRN Nausea And Vomiting Oxycodone/Acetaminophen 1 tab 12/24/18 22:13 12/25/18 06:12 Percocet 5/325 PO 1 tab Q4H PRN Administration Pain, Moderate (4-6) Rivaroxaban 20 mg 12/25/18 10:00 Xarelto PO QDAY [facility] Protocol Sodium Chloride 10 ml 12/24/18 22:00 12/24/18 22:23 Sodium Chloride Flush Syringe 10 Ml IV 10 ml BID [facility] Administration Sodium Chloride 10 ml 12/24/18 21:58 Sodium Chloride Flush Syringe 10 Ml IV PRN PRN LINE FLUSH Torsemide 100 mg 12/25/18 10:00 Demadex PO QDAY [facility] Trazodone HCl 50 mg 12/25/18 22:00 Desyrel PO QHS [facility] Ziprasidone 60 mg 12/25/18 10:00 Geodon PO BID [facility]
[2018-12-25] MEDS ORDERED: LOVENOX SUB-Q SCH (10:00)
[2018-12-25] MEDS: XARELTO PO SCH (10:26)
[2018-12-25] MEDS: COREG PO SCH ×2 (10:26→21:45)
[2018-12-25] MEDS: SODIUM CHLORIDE FLUSH SYRINGE 10 ML IV SCH ×2 (10:27→21:45)
[2018-12-25] MEDS: DUONEB *Not for PRN Use IH SCH ×4 (11:50→20:09)
--- NOTE | 2018-12-25 11:51 | Consultation ---
History of Present Illness Consult date: 12/25/18 Consult reason: chest pain History of present illness: Patient is a 58 year old woman who presented with chest pain and shortness of breath. Chest x-ray reports no evidence of interstitial edema. Cardiac enzymes are normal and her ECG is benign, a normal sinus rhythm. Of note, patient was just discharged from this hospital five days ago. At that time she had a normal thallium stress test and a normal left ventricular systolic function by ech ocardiogram. Medications and Allergies Allergies Allergy/AdvReac Type Severity Reaction Status Date / Time No Known Allergies Allergy Unverified 03/10/14 15:52 Home Medications Medication Instructions Recorded Confirmed Last Taken Type Amitriptyline [Elavil] 200 mg PO QHS 03/17/15 12/25/18 12/23/18 21:00 History Torsemide [Demadex] 100 mg PO QDAY 03/17/15 12/25/18 12/24/18 11:30 History Carvedilol [Coreg] 6.25 mg PO BID 12/18/18 12/25/18 12/24/18 11:30 History Gabapentin [Neurontin] 300 mg PO Q8HR 12/18/18 12/25/18 12/24/18 11:30 History Potassium Chloride [K-Dur] 20 meq PO QDAY 12/18/18 12/25/18 12/24/18 11:30 History Rivaroxaban [Xarelto] 20 mg PO QDAY 12/18/18 12/25/18 12/23/18 21:00 History Ziprasidone [Geodon] 60 mg PO BID 12/18/18 12/25/18 12/24/18 11:30 History traZODone [Desyrel] 50 mg PO QHS 12/18/18 12/25/18 12/23/18 21:00 History oxyCODONE /ACETAMINOPHEN [Percocet 1 tab PO Q6H PRN #14 tablet 12/19/18 12/25/18 1 Day Ago Rx 5/325 mg] ~12/24/18 Oxycodone HCl [oxyCODONE TAB] 10 mg PO Q6H PRN 12/25/18 12/25/18 12/24/18 11:30 History Active Meds: Active Medications Acetaminophen (Tylenol) 650 mg PO Q4H PRN PRN Reason: Pain MILD(1-3)/Fever >100.5/MARQUEZ Albuterol/Ipratropium (Duoneb *Not For Prn Use*) 1 ampul IH Q6HRT [facility] Amitriptyline HCl (Elavil) 200 mg PO QHS [facility] Carvedilol (Coreg) 6.25 mg PO BID [facility] Last Admin: 12/25/18 10:26 Dose: 6.25 mg Documented by: Gabapentin (Neurontin) 300 mg PO Q8HR [facility] Ondansetron HCl (Zofran) 4 mg IV Q8H PRN PRN Reason: Nausea And Vomiting Oxycodone/Acetaminophen (Percocet 5/325) 2 tab PO Q4H PRN PRN Reason: Pain, Moderate (4-6) Last Admin: 12/25/18 10:25 Dose: 2 tab Documented by: Rivaroxaban (Xarelto) 20 mg PO QDAY [facility]; Protocol Last Admin: 12/25/18 10:26 Dose: 20 mg Documented by: Sodium Chloride (Sodium Chloride Flush Syringe 10 Ml) 10 ml IV BID [facility] Last Admin: 12/25/18 10:27 Dose: 10 ml Documented by: Sodium Chloride (Sodium Chloride Flush Syringe 10 Ml) 10 ml IV PRN PRN PRN Reason: LINE FLUSH Torsemide (Demadex) 100 mg PO QDAY [facility] Trazodone HCl (Desyrel) 50 mg PO QHS [facility] Ziprasidone (Geodon) 60 mg PO BID [facility] Physical Examination Vital Signs Pulse Ox 93 12/24/18 17:28 General appearance: no acute distress HEENT: Positive: PERRL Neck: Positive: trachea midline Cardiac: Positive: Reg Rate and Rhythm Lungs: Positive: Decreased Breath Sounds Neuro: Positive: Grossly Intact Extremities: Present: edema (trace) Results 12/25/18 05:22 12/25/18 05:22 Cardiac Enzymes 12/24/18 12/24/18 Range/Units 19:28 19:28 AST 19 (5-40) units/L CK-MB (CK-2) 1.3 (0.0-4.0) ng/mL CBC 12/24/18 12/25/18 Range/Units 19:28 05:22 WBC 5.4 4.1 L (4.5-11.0) K/mm3 RBC 4.32 4.07 (3.65-5.03) M/mm3 Hgb 13.4 12.5 (10.1-14.3) gm/dl Hct 40.3 37.9 (30.3-42.9) % Plt Count 185 176 (140-440) K/mm3 Lymph # 1.6 (1.2-5.4) K/mm3 Jack # 0.7 (0.0-0.8) K/mm3 Eos # 0.2 (0.0-0.4) K/mm3 Baso # 0.0 (0.0-0.1) K/mm3 Comprehensive Metabolic Panel 12/24/18 12/25/18 Range/Units 19:28 05:22 Sodium 139 139 (137-145) mmol/L Potassium 4.4 3.8 (3.6-5.0) mmol/L Chloride 98.0 99.5 (98-107) mmol/L Carbon Dioxide 29 27 (22-30) mmol/L BUN 28 H 25 H (7-17) mg/dL Creatinine 0.8 0.7 (0.7-1.2) mg/dL Glucose 95 108 H (65-100) mg/dL Calcium 9.5 9.3 (8.4-10.2) mg/dL AST 19 (5-40) units/L ALT 12 (7-56) units/L Alkaline Phosphatase 68 (35-129) units/L Total Protein 7.0 (6.3-8.2) g/dL Albumin 4.3 (3.9-5) g/dL Assessment and Plan - Patient Problems (1) Chest pain Current Visit: Yes Status: Acute Qualifiers: Qualified Code(s): R07.9 - Chest pain, unspecified Plan to address problem: Atypical chest pain normal MPI 12/19/18 normal LVEF by echo 12/19/18
[2018-12-25] MEDS: DEMADEX PO SCH (14:11)
[2018-12-25] MEDS: NEURONTIN PO SCH ×2 (14:12→21:44)
[2018-12-25] MEDS: GEODON PO SCH ×2 (14:12→21:44)
[2018-12-25] MEDS ORDERED: NACL 0.9% 500 ML 500 ML IV SCH (15:00)
[2018-12-25] MEDS: COLACE PO SCH ×2 (17:01→21:45)
[2018-12-25] MEDS: ALUM-MAG HYDROX-SIMETH 200-200-20MG/5ML PO PRN (18:28)
[2018-12-25] MEDS: DESYREL PO SCH (21:44)
[2018-12-25] MEDS: ELAVIL PO SCH (22:16)
[2018-12-26] MEDS: DUONEB *Not for PRN Use IH SCH ×4 (02:08→19:59)
[2018-12-26] MEDS: PERCOCET 5/325 PO PRN ×3 (04:52→21:29)
[2018-12-26] MEDS: NEURONTIN PO SCH ×3 (05:09→21:26)
[2018-12-26] MEDS ORDERED: NACL 0.9% 500 ML 500 ML IV SCH (06:00)
[2018-12-26 06:01] LABS: Hematocrit 37.9 % (30.3-42.9); Hemoglobin 12.7 gm/dl (10.1-14.3); Mean Corpuscular HGB Conc 34 % (30-34); Mean Corpuscular Volume 93 fl (79-97); Platelet Count 180 K/mm3 (140-440); Red Blood Count 4.08 M/mm3 (3.65-5.03); Red Cell Distribution Width 15.7 % (13.2-15.2)
[2018-12-26 06:06] LABS: INR 1.22 (0.87-1.13)
[2018-12-26 06:07] LABS: Partial Thromboplastin Time 33.2 Sec. (24.2-36.6)
[2018-12-26 06:16] LABS: BUN/Creatinine Ratio 21; Blood Urea Nitrogen 19 mg/dL (7-17); Calcium 9.3 mg/dL (8.4-10.2); Hemolysis Index 42
[2018-12-26 07:48] LABS: Basophils % (Manual) 0 % (0.0-1.8); Total Cells Counted 100
[2018-12-26 07:49] LABS: Platelet Estimate Consistent w Auto; RBC Morphology Normal
[2018-12-26] MEDS ORDERED: NACL 0.9% 500 ML 500 ML ONE (09:47)
[2018-12-26] MEDS ORDERED: ECOTRIN PO ONE (10:15)
[2018-12-26] MEDS ORDERED: HEPARIN 10,000 UNITS/10 ML ONE (10:37)
[2018-12-26] MEDS ORDERED: HEPARIN/NS 5000 UNIT/500ML(CATH LAB) 1,000 ML IR ONE (10:37)
[2018-12-26] MEDS ORDERED: NITROGLYCERIN SYRINGE 3 ML ONE (10:38)
[2018-12-26] MEDS ORDERED: SUBLIMAZE ONE (10:38)
[2018-12-26] MEDS ORDERED: VERSED ONE (10:38)
[2018-12-26] MEDS ORDERED: XYLOCAINE 2% INFILTRATI ONE (10:38)
[2018-12-26] MEDS ORDERED: CALAN ONE (10:38)
--- NOTE | 2018-12-26 11:48 | Event Note ---
Date: 12/26/18 Cardiac catheterization was completed via the right radial artery, no complications. Findings: Angiographically normal coronary arteries. Normal left ventricular systolic function, ejection fraction 55-60%. No further cardiac chest pain workup is indicated, will defer to internal medicine for further evaluation of noncardiac chest pain as indicated.
[2018-12-26] MEDS ORDERED: NACL 0.9% 1000 ML 1,000 ML IV SCH (12:00)
--- NOTE | 2018-12-26 12:22 | Cardiac Catherization Report ---
CARDIAC CATHETERIZATION REASON FOR PROCEDURE: Chest pain. The patient is a 58-year-old woman with a long history of recurrent chest pain, which persists despite multiple negative noninvasive ischemic evaluations. Due to continued recurrent chest pain, requiring multiple admissions, diagnostic coronary angiography was recommended to definitively rule out coronary artery disease. PROCEDURE: 1. Left heart catheterization. 2. Selective left and right coronary angiography. 3. Left ventricle angiography. 4. Sedation time start 10:59, end 11:17. The patient was prepped and draped in a sterile fashion after informed consent. The right radial cath site was prepped and draped after a negative Jevon's test. The right radial artery was entered using Seldinger technique followed by placement of a 6-Vietnamese hydrophilic sheath. Routine radial cocktail was administered via the sheath. Left coronary angiography was performed using a #3.5 left Holland catheter. A #4 right Holland was used for right coronary angiography. The pigtail catheter was used for left ventricle angiography. The catheters were removed, sheath removed, and hemostasis achieved using a TR band. The patient was then returned to the postprocedure unit in stable condition. There were no complications. FINDINGS: HEMODYNAMICS: Left ventricular end-diastolic pressure was 25, following coronary angiography. Ascending aortic pressure was 146/96. There was no significant pressure gradient on pullback across the aortic valve. CORONARY ANGIOGRAPHY: Left main coronary artery was angiographically normal. The left anterior descending artery and its diagonal branches were angiographically normal. The circumflex artery and its obtuse marginal branches were angiographically normal. The right coronary artery was dominant. This vessel contained mild degree of ectasia in its proximal to mid segment, associated with mild atherosclerosis. Otherwise, this vessel was also free of significant disease. There was normal left ventricular systolic function with ejection fraction of 55-60%. CONCLUSION: 1. Essentially, angiographically near normal coronary arteries. 2. Normal left ventricular systolic function, ejection fraction 55-60%. RECOMMENDATION: 1. Risk factor modification and medical therapy. 2. If recurrent chest pain, recommend evaluation for noncardiac etiologies of chest pain. JOB# [id number] CA/NTS
[2018-12-26] MEDS ORDERED: CHLORASEPTIC MM PRN (13:05)
[2018-12-26 14:00] LABS: Bilirubin,Urine NEG (Negative); Blood,Urine NEG (Negative); Color,Urine Straw (Yellow); Protein,Urine <15 mg/dL mg/dL (Negative); Urobilinogen,Urine < 2.0 mg/dL (<2.0)
[2018-12-26] MEDS: XARELTO PO SCH (14:53)
[2018-12-26] MEDS: COLACE PO SCH ×2 (14:53→21:26)
[2018-12-26] MEDS: GEODON PO SCH ×2 (14:54→21:27)
[2018-12-26] MEDS: DEMADEX PO SCH (14:54)
[2018-12-26] MEDS: COREG PO SCH ×2 (14:54→21:27)
[2018-12-26] MEDS: SODIUM CHLORIDE FLUSH SYRINGE 10 ML IV SCH ×2 (14:55→21:27)
--- NOTE | 2018-12-26 15:54 | Progress Note ---
Assessment and Plan Assessment and plan: Chest pain. Continue chest pain protocol. Recent stress thallium on 12/19/18 was normal. Follow cardiac isoenzymes and serial EKGs. Patient will have a deck today. Hypertension. Resume antihypertensive medications. Chronic Diastolic heart failure, compensated. Echocardiogram completed on 12/19/18 revealed global left tracheal systolic function normal with EF of 50-55%. Mild concentric left ventricular hypertrophy. bacterial vaginosis; will start her on flagyl 500mg BID Osteoarthritis. Pain control. History of PE. On xarelto History Interval history: Patient was seen and evaluated this morning, patient states she is feeling good a bit better Hospitalist Physical - Physical exam Narrative exam: Not in cardiopulmonary distress. The patient appeared well nourished and normally developed. Vital signs as documented. Head exam is unremarkable. No scleral icterus . Neck is without jugular venous distension, thyromegaly, or carotid bruits. Lungs are clear to auscultation. Cardiac exam reveals regular rate and Rhythm. Abdominal exam reveals normal bowel sounds. Extremities are nonedematous and both femoral and pedal pulses are normal. 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 No focal weakness. - Constitutional Vitals: Temp Pulse Resp BP Pulse Ox 97.9 F 86 20 125/80 99 12/26/18 12:56 12/26/18 12:56 12/26/18 12:56 12/26/18 14:54 12/26/18 12:56 General appearance: Present: no acute distress Results - Labs CBC & Chem 7: 12/26/18 04:34 12/26/18 04:34 Labs: Laboratory Last Values WBC 3.3 K/mm3 (4.5-11.0) L 12/26/18 04:34 RBC 4.08 M/mm3 (3.65-5.03) 12/26/18 04:34 Hgb 12.7 gm/dl (10.1-14.3) 12/26/18 04:34 Hct 37.9 % (30.3-42.9) 12/26/18 04:34 MCV 93 fl (79-97) 12/26/18 04:34 MCH 31 pg (28-32) 12/26/18 04:34 MCHC 34 % (30-34) 12/26/18 04:34 RDW 15.7 % (13.2-15.2) H 12/26/18 04:34 Plt Count 180 K/mm3 (140-440) 12/26/18 04:34 Lymph % (Auto) 39.7 % (13.4-35.0) H 12/25/18 05:22 Hickman % (Auto) Recycling Director 12/26/18 04:34 Eos % (Auto) 4.2 % (0.0-4.3) 12/25/18 05:22 Baso % (Auto) 1.0 % (0.0-1.8) 12/25/18 05:22 Lymph # 1.6 K/mm3 (1.2-5.4) 12/25/18 05:22 Hickman # 0.7 K/mm3 (0.0-0.8) 12/25/18 05:22 Eos # 0.2 K/mm3 (0.0-0.4) 12/25/18 05:22 Baso # 0.0 K/mm3 (0.0-0.1) 12/25/18 05:22 Add Manual Diff Complete 12/26/18 04:34 Total Counted 100 12/26/18 04:34 Seg Neutrophils % 39.3 % (40.0-70.0) L 12/25/18 05:22 Seg Neuts % (Manual) 47.0 % (40.0-70.0) 12/26/18 04:34 Band Neutrophils % 0 % 12/26/18 04:34 Lymphocytes % (Manual) 32.0 % (13.4-35.0) 12/26/18 04:34 Reactive Lymphs % (Man) 0 % 12/26/18 04:34 Monocytes % (Manual) 17.0 % (0.0-7.3) H 12/26/18 04:34 Eosinophils % (Manual) 4.0 % (0.0-4.3) 12/26/18 04:34 Basophils % (Manual) 0 % (0.0-1.8) 12/26/18 04:34 Metamyelocytes % 0 % 12/26/18 04:34 Myelocytes % 0 % 12/26/18 04:34 Promyelocytes % 0 % 12/26/18 04:34 Blast Cells % 0 % 12/26/18 04:34 Nucleated RBC % Not Reportable 12/26/18 04:34 Seg Neutrophils # 1.6 K/mm3 (1.8-7.7) L 12/25/18 05:22 Seg Neutrophils # Man 1.6 K/mm3 (1.8-7.7) L 12/26/18 04:34 Band Neutrophils # 0.0 K/mm3 12/26/18 04:34 Lymphocytes # (Manual) 1.1 K/mm3 (1.2-5.4) L 12/26/18 04:34 Abs React Lymphs (Man) 0.0 K/mm3 12/26/18 04:34 Monocytes # (Manual) 0.6 K/mm3 (0.0-0.8) 12/26/18 04:34 Eosinophils # (Manual) 0.1 K/mm3 (0.0-0.4) 12/26/18 04:34 Basophils # (Manual) 0.0 K/mm3 (0.0-0.1) 12/26/18 04:34 Metamyelocytes # 0.0 K/mm3 12/26/18 04:34 Myelocytes # 0.0 K/mm3 12/26/18 04:34 Promyelocytes # 0.0 K/mm3 12/26/18 04:34 Blast Cells # 0.0 K/mm3 12/26/18 04:34 WBC Morphology Not Reportable 12/26/18 04:34 Hypersegmented Neuts Not Reportable 12/26/18 04:34 Hyposegmented Neuts Not Reportable 12/26/18 04:34 Hypogranular Neuts Not Reportable 12/26/18 04:34 Smudge Cells Not Reportable 12/26/18 04:34 Toxic Granulation Not Reportable 12/26/18 04:34 Toxic Vacuolation Not Reportable 12/26/18 04:34 Dohle Bodies Not Reportable 12/26/18 04:34 Pelger-Huet Anomaly Not Reportable 12/26/18 04:34 Chris Rods Not Reportable 12/26/18 04:34 Platelet Estimate Consistent w auto 12/26/18 04:34 Clumped Platelets Not Reportable 12/26/18 04:34 Plt Clumps, EDTA Not Reportable 12/26/18 04:34 Large Platelets Not Reportable 12/26/18 04:34 Giant Platelets Not Reportable 12/26/18 04:34 Platelet Satelliting Not Reportable 12/26/18 04:34 Plt Morphology Comment Not Reportable 12/26/18 04:34 RBC Morphology Normal 12/26/18 04:34 Dimorphic RBCs Not Reportable 12/26/18 04:34 Polychromasia Not Reportable 12/26/18 04:34 Hypochromasia Not Reportable 12/26/18 04:34 Poikilocytosis Not Reportable 12/26/18 04:34 Anisocytosis Not Reportable 12/26/18 04:34 Microcytosis Not Reportable 12/26/18 04:34 Macrocytosis Not Reportable 12/26/18 04:34 Spherocytes Not Reportable 12/26/18 04:34 Pappenheimer Bodies Not Reportable 12/26/18 04:34 Sickle Cells Not Reportable 12/26/18 04:34 Target Cells Not Reportable 12/26/18 04:34 Tear Drop Cells Not Reportable 12/26/18 04:34 Ovalocytes Not Reportable 12/26/18 04:34 Helmet Cells Not Reportable 12/26/18 04:34 Ram-[place] Bodies Not Reportable 12/26/18 04:34 [place] Rings Not Reportable 12/26/18 04:34 Sarah Cells Not Reportable 12/26/18 04:34 Bite Cells Not Reportable 12/26/18 04:34 Crenated Cell Not Reportable 12/26/18 04:34 Elliptocytes Not Reportable 12/26/18 04:34 Acanthocytes (Spur) Not Reportable 12/26/18 04:34 Rouleaux Not Reportable 12/26/18 04:34 Hemoglobin C Crystals Not Reportable 12/26/18 04:34 Schistocytes Not Reportable 12/26/18 04:34 Malaria parasites Not Reportable 12/26/18 04:34 Goyo Bodies Not Reportable 12/26/18 04:34 Hem Pathologist Commnt No 12/26/18 04:34 PT 16.2 Sec. (12.2-14.9) H 12/26/18 04:50 INR 1.22 (0.87-1.13) H 12/26/18 04:50 APTT 33.2 Sec. (24.2-36.6) 12/26/18 04:50 Sodium 142 mmol/L (137-145) 12/26/18 04:34 Potassium 4.1 mmol/L (3.6-5.0) 12/26/18 04:34 Chloride 94.5 mmol/L (98-107) L 12/26/18 04:34 Carbon Dioxide 35 mmol/L (22-30) H D 12/26/18 04:34 Anion Gap 17 mmol/L 12/26/18 04:34 BUN 19 mg/dL (7-17) H 12/26/18 04:34 Creatinine 0.9 mg/dL (0.7-1.2) 12/26/18 04:34 Estimated GFR > 60 ml/min 12/26/18 04:34 BUN/Creatinine Ratio 21 % 12/26/18 04:34 Glucose 107 mg/dL (65-100) H 12/26/18 04:34 Calcium 9.3 mg/dL (8.4-10.2) 12/26/18 04:34 Total Bilirubin 0.20 mg/dL (0.1-1.2) 12/24/18 19:28 AST 19 units/L (5-40) 12/24/18 19:28 ALT 12 units/L (7-56) 12/24/18 19:28 Alkaline Phosphatase 68 units/L (35-129) 12/24/18 19:28 Total Creatine Kinase 105 units/L (30-135) 12/24/18 19:28 CK-MB (CK-2) 1.3 ng/mL (0.0-4.0) 12/24/18 19:28 CK-MB (CK-2) Rel Index 1.2 (0-4) 12/24/18 19:28 Troponin T < 0.010 ng/mL (0.00-0.029) 12/24/18 22:46 NT-Pro-B Natriuret Pep 38.63 pg/mL (0-900) 12/24/18 19:28 Total Protein 7.0 g/dL (6.3-8.2) 12/24/18 19:28 Albumin 4.3 g/dL (3.9-5) 12/24/18 19:28 Albumin/Globulin Ratio 1.6 % 12/24/18 19:28 Urine Color Straw (Yellow) 12/26/18 13:30 Urine Turbidity Clear (Clear) 12/26/18 13:30 Urine pH 7.0 (5.0-7.0) 12/26/18 13:30 Ur Specific Paia 1.045 (1.003-1.030) H 12/26/18 13:30 Urine Protein <15 mg/dl mg/dL (Negative) 12/26/18 13:30 Urine Glucose (UA) Neg mg/dL (Negative) 12/26/18 13:30 Urine Ketones Neg mg/dL (Negative) 12/26/18 13:30 Urine Blood Neg (Negative) 12/26/18 13:30 Urine Nitrite Neg (Negative) 12/26/18 13:30 Ur Reducing Substances Not Reportable 12/26/18 13:30 Urine Bilirubin Neg (Negative) 12/26/18 13:30 Urine Ictotest Not Reportable 12/26/18 13:30 Urine Urobilinogen < 2.0 mg/dL (<2.0) 12/26/18 13:30 Ur Leukocyte Esterase Neg (Negative) 12/26/18 13:30 Urine WBC (Auto) Not Reportable 12/26/18 13:30 Urine RBC (Auto) 2.0 /HPF (0.0-6.0) 12/26/18 13:30 U Epithel Cells (Auto) 1.0 /HPF (0-13.0) 12/26/18 13:30 Active Medications - Current Medications Current Medications: Generic Name Dose Route Start Last Admin Trade Name Freq PRN Reason Stop Dose Admin Acetaminophen 650 mg 12/24/18 21:58 Tylenol PO Q4H PRN Pain MILD(1-3)/Fever >100.5/MARQUEZ Al Hydrox/Mg Hydrox/Simethicone 30 ml 12/25/18 14:22 12/25/18 18:28 Alum-Mag Hydrox-Simeth [phone]/5ml PO 30 ml Q4H PRN Administration Indigestion Albuterol/Ipratropium 1 ampul 12/25/18 02:00 12/26/18 14:06 Duoneb *Not For Prn Use* IH Not Given Q6HRT [facility] Amitriptyline HCl 200 mg 12/25/18 22:00 12/25/18 22:16 Elavil PO 200 mg QHS [facility] Administration Carvedilol 6.25 mg 12/25/18 10:00 12/26/18 14:54 Coreg PO 6.25 mg BID [facility] Administration Docusate Sodium 100 mg 12/25/18 15:00 12/26/18 14:53 Colace PO 100 mg BID [facility] Administration Gabapentin 300 mg 12/25/18 14:00 12/26/18 14:54 Neurontin PO 300 mg Q8HR [facility] Administration Sodium Chloride 500 mls @ 50 mls/hr 12/26/18 06:00 12/26/18 09:57 Nacl 0.9% 500 Ml IV 12/26/18 15:59 50 mls/hr DIRECT [facility] Administration Sodium Chloride 1,000 mls @ 100 mls/hr 12/26/18 12:00 Nacl 0.9% 1000 Ml IV 12/26/18 15:59 DIRECT [facility] Ondansetron HCl 4 mg 12/24/18 21:58 Zofran IV Q8H PRN Nausea And Vomiting Oxycodone/Acetaminophen 2 tab 12/25/18 10:00 12/26/18 14:57 Percocet 5/325 PO 2 tab Q4H PRN Administration Pain, Moderate (4-6) Phenol 1 spray 12/26/18 13:05 Chloraseptic MM PRN PRN Sore Throat Sodium Chloride 10 ml 12/24/18 22:00 12/26/18 14:55 Sodium Chloride Flush Syringe 10 Ml IV 10 ml BID [facility] Administration Sodium Chloride 10 ml 12/24/18 21:58 Sodium Chloride Flush Syringe 10 Ml IV PRN PRN LINE FLUSH Torsemide 100 mg 12/25/18 10:00 12/26/18 14:54 Demadex PO 100 mg QDAY [facility] Administration Trazodone HCl 50 mg 12/25/18 22:00 12/25/18 21:44 Desyrel PO 50 mg QHS [facility] Administration Ziprasidone 60 mg 12/25/18 10:00 12/26/18 14:54 Geodon PO 60 mg BID [facility] Administration
[2018-12-26] MEDS: ELAVIL PO SCH (21:26)
[2018-12-26] MEDS: DESYREL PO SCH (21:27)
[2018-12-26] MEDS ORDERED: BENADRYL PO PRN (23:12)
[2018-12-26] MEDS ORDERED: CEPACOL X STRENGTH MM PRN (23:16)
[2018-12-26] MEDS: FLAGYL PO SCH (23:29)
[2018-12-27] MEDS: DUONEB *Not for PRN Use IH SCH ×2 (02:27→07:37)
[2018-12-27] MEDS: NEURONTIN PO SCH (05:59)
[2018-12-27] MEDS: FLAGYL PO SCH (05:59)
[2018-12-27] MEDS: ALUM-MAG HYDROX-SIMETH 200-200-20MG/5ML PO PRN (08:27)
[2018-12-27] MEDS: PERCOCET 5/325 PO PRN (08:27)
--- NOTE | 2018-12-27 08:43 | Discharge Summary ---
Providers - Providers Date of Admission: 12/24/18 21:58 Attending physician: GIANNA BARRAGAN MD 12/24/18 21:58 Consult to Physician [CONS] Routine Comment: Consulting Provider: LISA RICO Physician Instructions: Reason For Exam: karyn 12/26/18 11:49 Consult to Cardiac Rehabilitation [CONS] Routine Reason For Exam: Cardiac Rehab Evaluation [facility] Reason for admission: Chest pain Condition: Stable Pertinent studies: Cardiac cath; clean coronaries Hospital course: 58 -year-old woman at age of hypertension, CHF, osteoarthritis comes emergency room with complaints of chest pain. She was just discharged from this hospital yesterday after treated for depression and chest pain. Her pain is in the left chest which started yesterday, dull pain, constant, intensity 5/10, radiating to the left shoulder, cannot identify exacerbating or relieving factors. Denies nausea or vomiting, shortness breath, diaphoresis or palpitation. She was admitted in December 19, she had a stress test done which was negative. Patient was admitted and cardiac cath was done and showed clean coronaries. cardiology was consulted and clear for discharge. Patient's chest pain resolved. patient was hemodynamically stable at the time of discharge. Patient was roya ated for bacterial vaginosis. Patient discharged home. Disposition: TO HOME OR SELFCARE Time spent for discharge: 32 minutes - Discharge Diagnoses (1) Bacterial vaginosis Status: Acute (2) Chest pain Status: Acute Qualifiers: Chest pain type: unspecified Qualified Code(s): R07.9 - Chest pain, unspecified (3) Edema Status: Acute Qualifiers: Edema type: unspecified Qualified Code(s): R60.9 - Edema, unspecified (4) SOB (shortness of breath) Status: Acute (5) Bipolar 1 disorder Status: Acute Core Measure Documentation - Palliative Care Palliative Care/ Comfort Measures: Not Applicable - Core Measures Any of the following diagnoses?: none Exam - Physical Exam Narrative exam: Not in cardiopulmonary distress. The patient is morbidly obese. Vital signs as documented. Head exam is unremarkable. No scleral icterus . Neck is without jugular venous distension, thyromegaly, or carotid bruits. Lungs are clear to auscultation. Cardiac exam reveals regular rate and Rhythm. Abdominal exam reveals normal bowel sounds. Extremities non pitting edema. 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 No focal weakness. - Constitutional Vitals: Temp Pulse Resp BP Pulse Ox 98 F 68 18 110/68 88 12/27/18 05:20 12/27/18 05:20 12/27/18 05:20 12/27/18 05:20 12/27/18 00:01 Plan Activity: no restrictions Weight Bearing Status: Full Weight Bearing Diet: low cholesterol, low salt Follow up with: HERO DELANEY MD [Primary Care Provider] - 3-5 Days Prescriptions: metroNIDAZOLE [Metronidazole] 500 mg PO BID #12 tablet
[2018-12-27] MEDS: COREG PO SCH (09:36)
[2018-12-27] MEDS: COLACE PO SCH (09:36)
[2018-12-27 09:37] VITALS: BP 132/72
[2018-12-27] MEDS: SODIUM CHLORIDE FLUSH SYRINGE 10 ML IV SCH (09:37)
[2018-12-27] MEDS: DEMADEX PO SCH (09:37)
[2018-12-27] MEDS: GEODON PO SCH (09:37)
--- NOTE | 2018-12-27 09:51 | Progress Note ---
Assessment and Plan Atypical chest pain normal coronary arteries by [facility] this admission normal MPI 12/19/18 normal LVEF by echo 12/19/18 Hx of pulmonary embolism The duration of oral anticoagulation for pulmonary embolism is poorly documented, but noted CT angiograms of the chest done earlier this month and document negative for pulmonary embolism. Stable cardiac ahn for discharge home. Subjective Date of service: 12/27/18 Interval history: Patient has no complaints. She denies chest pain. Objective Vital Signs Temp Pulse Resp BP BP Pulse Ox 12/27/18 09:36 72 132/72 12/27/18 08:48 97.7 F 88 18 114/76 95 12/27/18 05:20 98 F 68 18 110/68 12/27/18 00:01 98.0 F 92 H 20 105/60 88 12/26/18 21:29 18 12/26/18 20:25 97 H 12/26/18 20:00 96 12/26/18 19:44 98.0 F 97 H 20 115/76 98 12/26/18 18:01 97.9 F 94 H 20 115/66 92 12/26/18 17:41 103 H 12/26/18 14:54 125/80 12/26/18 12:56 97.9 F 86 20 125/80 99 12/26/18 11:50 85 - Physical Examination General: No Apparent Distress HEENT: Positive: PERRL Neck: Positive: trachea midline Cardiac: Positive: Reg Rate and Rhythm Lungs: Positive: Decreased Breath Sounds Neuro: Positive: Grossly Intact Incision: Cardiac Cath Site (right radial) Extremities: Present: edema (trace) - Imaging and Cardiology EKG: image reviewed
== END 2018-12-27 11:29 | disposition home or self-care (01) ==
LOC: ED 16:59 → 4A 21:58
PROVIDERS: ADMIT Internal Medicine; ATTEND Internal Medicine
DX: R07.89 Other chest pain (principal); I11.0 Hypertensive heart disease with heart failure; I50.9 Heart failure, unspecified; M19.90 Unspecified osteoarthritis, unspecified site; N76.0 Acute vaginitis; R60.9 Edema, unspecified; R06.02 Shortness of breath; F31.9 Bipolar disorder, unspecified; Z86.711 Personal history of pulmonary embolism; Z90.710 Acquired absence of both cervix and uterus; Z98.890 Other specified postprocedural states
CPT/HCPCS: 36415; 71045; 80048; 80053; 81001; 82550; 82553; 83880; 84484; 85007; 85025; 85610; 85730; 87116; 93005; 93010; 93458; 94640; 99291; C1894; G0378; J1644; J2250; J3010; J7040; Q9967

== ENCOUNTER 2022-01-22 18:56 | Emergency (ER) | payer MEDICAID ==
[~2022-01-22 18:56] MED LIST: NALOXONE 2 MG/2 ML INJ ONE
[2022-01-22] MEDS ORDERED: ONDANSETRON 4 MG/2 ML INJ IV ONE (19:03)
[2022-01-22] MEDS ORDERED: MORPHINE 4 MG/1 ML INJ IV ONE (19:03)
[2022-01-22] MEDS ORDERED: SODIUM CHLORIDE 0.9% 500 ML 500 ML IV ONE ×2 (19:03→19:42)
--- NOTE | 2022-01-22 19:05 | Event Note ---
Date: 01/22/22 Verbal report received from emergency medical services. EMS documentation not available at time of chart dictation Medical screening examination note: This patient is a 61-year-old female who reports having had a gastric bypass surgery December 31 at [facility], with Dr. Oliver Yeh of [facility], now presenting to the ER today with a complaint of diffuse abdominal cramping. EMS reports unremarkable and stable vital signs. Abdomen with no significant rebound, guarding or peritoneal signs, the patient appears to be quite uncomfortable. Obtain CT scan of the abdomen pelvis with IV and oral contrast, obtain appropriate laboratory studies and EKG. Detailed history and physical to be performed by oncoming ER provider
[2022-01-22] MEDS ORDERED: HYDROmorphone 1 MG/1 ML INJ IM ONE (19:14)
[2022-01-22] MEDS ORDERED: ONDANSETRON 4 MG/2 ML INJ IM ONE (19:14)
--- NOTE | 2022-01-22 19:32 | Emergency Department Report ---
ED Abdominal Pain HPI - General Chief Complaint: Abdominal Pain Stated Complaint: ABDOMINAL PAIN Time Seen by Provider: 01/22/22 19:13 Source: patient, EMS Mode of arrival: Stretcher Limitations: No Limitations - History of Present Illness Initial Comments: 61-year-old female who reports having had a gastric bypass surgery December 31 at [facility], with Dr. Oliver Yeh of [facility], now presenting to the ER today with a complaint of diffuse abdominal cramping. Pt appears to be in significant distress. Patient states that pain started acutely and is severe rated 10/10 in intensity. Pain is in the mid and left abdomen radiating to the back and worse with palpation and movement. No alleviating factors reported. Positive associated nausea and vomiting. Severity scale (0 -10): 10 - Related Data Home Medications Medication Instructions Recorded Confirmed Last Taken Amitriptyline [Elavil] 200 mg PO QHS 03/17/15 12/25/18 12/23/18 21:00 Torsemide [Demadex] 100 mg PO QDAY 03/17/15 12/25/18 12/24/18 11:30 Gabapentin 300 mg PO Q8HR 12/18/18 12/25/18 12/24/18 11:30 Potassium Chloride [K-Dur] 20 meq PO QDAY 12/18/18 12/25/18 12/24/18 11:30 Rivaroxaban [Xarelto] 20 mg PO QDAY 12/18/18 12/25/18 12/23/18 21:00 Ziprasidone [Geodon] 60 mg PO BID 12/18/18 12/25/18 12/24/18 11:30 carvediloL [Coreg] 6.25 mg PO BID 12/18/18 12/25/18 12/24/18 11:30 traZODone [Desyrel] 50 mg PO QHS 12/18/18 12/25/18 12/23/18 21:00 Oxycodone HCl [oxyCODONE] 10 mg PO Q6H PRN 12/25/18 12/25/18 12/24/18 11:30 Previous Rx's Medication Instructions Recorded Last Taken Type oxyCODONE /ACETAMINOPHEN [Percocet 1 tab PO Q6H PRN #14 tablet 12/19/18 1 Day Ago Rx 5/325 mg] ~12/24/18 metroNIDAZOLE [Metronidazole] 500 mg PO BID #12 tablet 12/27/18 Unknown Rx Allergies Allergy/AdvReac Type Severity Reaction Status Date / Time No Known Allergies Allergy Unverified 03/10/14 15:52 ED Review of Systems ROS: Stated complaint: ABDOMINAL PAIN Other details as noted in HPI Comment: All other systems reviewed and negative ED Past Medical Hx - Past Medical History Previous Medical History?: Yes Hx Hypertension: Yes Hx Congestive Heart Failure: Yes (with pitting edema) Hx Pulmonary Embolism: Yes (2016) Hx Arthritis: Yes Hx Psychiatric Treatment: Yes (A/V hallucinations, drug use, Winfred) Additional medical history: gout - Surgical History Past Surgical History?: Yes Additional Surgical History: tumor left breast, hysterectomy - Social History Smoking Status: Never Smoker - Medications Home Medications: Home Medications Medication Instructions Recorded Confirmed Last Taken Type Amitriptyline [Elavil] 200 mg PO QHS 03/17/15 12/25/18 12/23/18 21:00 History Torsemide [Demadex] 100 mg PO QDAY 03/17/15 12/25/18 12/24/18 11:30 History Gabapentin 300 mg PO Q8HR 12/18/18 12/25/18 12/24/18 11:30 History Potassium Chloride [K-Dur] 20 meq PO QDAY 12/18/18 12/25/18 12/24/18 11:30 History Rivaroxaban [Xarelto] 20 mg PO QDAY 12/18/18 12/25/18 12/23/18 21:00 History Ziprasidone [Geodon] 60 mg PO BID 12/18/18 12/25/18 12/24/18 11:30 History carvediloL [Coreg] 6.25 mg PO BID 12/18/18 12/25/18 12/24/18 11:30 History traZODone [Desyrel] 50 mg PO QHS 12/18/18 12/25/18 12/23/18 21:00 History oxyCODONE /ACETAMINOPHEN [Percocet 1 tab PO Q6H PRN #14 tablet 12/19/18 12/25/18 1 Day Ago Rx 5/325 mg] ~12/24/18 Oxycodone HCl [oxyCODONE] 10 mg PO Q6H PRN 12/25/18 12/25/18 12/24/18 11:30 History metroNIDAZOLE [Metronidazole] 500 mg PO BID #12 tablet 12/27/18 Unknown Rx ED Physical Exam - General Limitations: No Limitations - Other Other exam information: General: Distressed secondary to pain Head: Atraumatic Eyes: normal appearance ENT: Moist mucous membranes Neck: Normal appearance, no midline tenderness Chest: Clear to auscultation bilaterally CV: Regular rate and rhythm Abdomen: Soft, normal bowel sounds, nontender, nondistended, no rebound or guarding Back: Normal inspection Extremity: Normal inspection, full range of motion Neuro: Alert O x 3, no facial asymmetry, speech clear, no gross motor sensory deficit Psych: Appropriate behavior Skin: No rash ED Course Vital Signs 01/22/22 01/22/22 01/22/22 18:59 22:08 23:47 Temperature 98.9 F Pulse Rate 74 111 H 100 H Respiratory 16 18 16 Rate Blood Pressure [Left] Blood Pressure 130/90 123/92 103/71 [Right] O2 Sat by Pulse 97 96 94 Oximetry 01/23/22 01/23/22 01/23/22 00:50 01:14 01:46 Temperature 97.9 F Pulse Rate 102 H 98 H Respiratory 20 16 Rate Blood Pressure [Left] Blood Pressure 128/76 118/77 [Right] O2 Sat by Pulse 96 94 96 Oximetry 01/23/22 01/23/22 01/23/22 04:30 05:10 07:30 Temperature Pulse Rate 115 H Respiratory 18 Rate Blood Pressure [Left] Blood Pressure 109/70 [Right] O2 Sat by Pulse 98 95 94 Oximetry 01/23/22 09:50 Temperature 98.9 F Pulse Rate 102 H Respiratory 20 Rate Blood Pressure 95/55 [Left] Blood Pressure [Right] O2 Sat by Pulse 97 Oximetry - Reevaluation(s) Reevaluation #1: 01/22/22 22:58 responded to code blue in ct scanner, pt was reported pulseless by veterinary practitioner who initiated chest compressions. Upon my arrival pt had a palpable pulse with intermittent respirations. Pt was bagged while she was being placed on a monitor. Narcan 2g was administered with improvement in respiratory rate. Pt was initially combative and confused and fighting bag mask ventilations. pt was suctioned and bagging continued until intubation equipment was set up. Pt then became more responsive and was able to cooperate and was satting 95-100% on room air. Pt reports that she is currently pain free. Pt is noted to have an intermittent cough with concerns of aspiration therefore chest xray ordered. Pt reports that she had an accidental overdose on pain medication after her gastric bypass surgery as well. pt did received multiple doses of Dilaudid as well as bendaryl in the ED for persistent intractable abd pain and itching without signs of rash. She was alert and responsive prior and during her ct scan. After scan was preformed she was noticed to be unresponsive. 01/22/22 23:47 pt satting only 90% on 15 L. will be placed on vapotherm. Antibiotics for aspiration ordered - Consultations Consultation #1: 01/22/22 23:20 Call placed to [facility] transfer service. Awaiting call back from patients surgeon. 23:36 case d/w dr Lombardo. He was informed that we are awaiting call back from pt's surgeon regarding transfer for sbo s/p gastric bypass surgery however pt is requiring high flow. He suggests NGT placement. I will attempt to discuss this management with the bypass surgeon prior to placement. 01/23/22 00:[address] Yeh bariatric surgeon and critical care doc Dr. Suárez ED Medical Decision Making - Lab Data Result diagrams: 01/22/22 19:38 01/22/22 19:38 Lab Results 01/22/22 01/22/22 01/22/22 Range/Units 19:38 19:38 19:38 WBC 5.2 (4.5-11.0) K/mm3 RBC 3.90 (3.65-5.03) M/mm3 Hgb 10.8 (10.1-14.3) gm/dl Hct 34.6 (30.3-42.9) % MCV 89 (79-97) fl MCH 28 (28-32) pg MCHC 31 (30-34) % RDW 16.4 H (13.2-15.2) % Plt Count 203 (140-440) K/mm3 Baso % (Auto) Clinical Consultant PT 15.0 H (12.2-14.9) Sec. INR 1.06 (0.87-1.13) Sodium 137 (137-145) mmol/L Potassium 3.6 (3.6-5.0) mmol/L Chloride 99.4 (98-107) mmol/L Carbon Dioxide 21 L (22-30) mmol/L Anion Gap 20 mmol/L BUN 16 (7-17) mg/dL Creatinine 0.7 (0.6-1.2) mg/dL Estimated GFR > 60 ml/min BUN/Creatinine Ratio 23 % Glucose 101 H (65-100) mg/dL Calcium 10.3 H (8.4-10.2) mg/dL Total Bilirubin 0.50 (0.1-1.2) mg/dL Direct Bilirubin < 0.2 (0-0.2) mg/dL Indirect Bilirubin 0.3 mg/dL AST 27 (5-40) units/L ALT 19 (7-56) units/L Alkaline Phosphatase 52 (35-129) units/L Total Protein 6.8 (6.3-8.2) g/dL Albumin 4.5 (3.9-5) g/dL Albumin/Globulin Ratio 2.0 % Lipase 25 (13-60) units/L - Radiology Data Radiology results: report reviewed CT ABDOMEN AND PELVIS WITH CONTRAST INDICATION / CLINICAL INFORMATION: Acute abdominal pain, intravenous and oral contras. TECHNIQUE: Axial CT images were obtained through the abdomen and pelvis after 100 cc of Omnipaque [address] scans at this location are performed using CT dose reduction for ALARA by means of automated exposure control. COMPARISON: None available. FINDINGS: LOWER CHEST: No significant abnormality. AORTA / ARTERIES: Mild atherosclerotic calcification without acute abnormality. IVC / VEINS: No significant abnormality. LYMPH NODES: No significant adenopathy. COLON: No significant abnormality. APPENDIX: No significant abnormality. STOMACH / SMALL BOWEL: Postsurgical changes suggesting a Florentin-en-Y gastric bypass. There is contrast refluxing into the biliopancreatic limb. There is also dilation of the proximal small bowel which has a transition point in the left hemiabdomen (series 2 image 112 and series 601 image 35). PERITONEUM: No free fluid. No free air. No fluid collection. LIVER: Multiple hepatic cysts. GALLBLADDER: Uncomplicated nephrolithiasis. BILE DUCTS: No significant abnormality. PANCREAS: No significant abnormality. SPLEEN: No significant abnormality. ADRENALS: No significant abnormality. RIGHT KIDNEY / URETER: No significant abnormality. LEFT KIDNEY / URETER: No significant abnormality. URINARY BLADDER: No significant abnormality. REPRODUCTIVE ORGANS: Uterus is absent. No significant adnexal abnormality. SKELETAL SYSTEM: No significant abnormality. ADDITIONAL FINDINGS: None. IMPRESSION: 1. Status post Florentin-en-Y gastric bypass with small bowel obstruction. The transition point is noted within the left hemiabdomen as detailed above. 2. Additional findings as above. - Medical Decision Making 61-year-old female presents to the hospital with nausea vomiting with CT findings of small bowel obstruction status post Florentin-en-Y surgery 1 month ago. Patient had a respiratory arrest after multiple doses of narcotic with response to Narcan. Patient likely aspirated and requires supplemental oxygen support post respiratory arrest. Antibiotics ordered. Case discussed with multiple consultants and ultimately patient will be transferred to [facility] for supplemental oxygen support to an ICU bed. Dr calixto to f/u ABG result and inform accepting critical care provider to rule out CO2 retention prior to transfer Critical Care Time: Yes Critical care time in (mins) excluding proc time.: 35 Critical care attestation.: If time is entered above; I have spent that time in minutes in the direct care of this critically ill patient, excluding procedure time. Critical Care Time: 35 Minutes of critical care time excluding procedures were used in the care of the patient. I came immediately to the bedside upon patient's arrival. I obtained history from EMS at the bedside. I discussed treatment plan with the nursing team members. I reviewed electronic record. Patient required multiple interventions and reassessments. Spoke with consultants for collaborative care. ED Disposition Clinical Impression: SBO (small bowel obstruction), S/P gastric bypass, Respiratory arrest, Narcotic overdose, Aspiration pneumonia, Hypoxia Disposition: 02 SHORT TERM HOSPITAL Is pt being admited?: No Condition: Stable Instructions: Bacterial Pneumonia (ED), Abdominal Pain (ED) Referrals: PRIMARY CARE, [Primary Care Provider] - 3-5 Days
[2022-01-22] MEDS ORDERED: SODIUM CHLORIDE 0.9% 1000 ML 1,000 ML ONE (19:37)
[2022-01-22] MEDS ORDERED: HYDROmorphone 1 MG/1 ML INJ IV ONE ×3 (19:41→21:58)
[2022-01-22 20:11] LABS: Hematocrit 34.6 % (30.3-42.9); Hemoglobin 10.8 gm/dl (10.1-14.3); Mean Corpuscular HGB Conc 31 % (30-34); Mean Corpuscular Volume 89 fl (79-97); Platelet Count 203 K/mm3 (140-440); Red Cell Distribution Width 16.4 % (13.2-15.2)
[2022-01-22 20:21] LABS: INR 1.06 (0.87-1.13)
[2022-01-22 20:26] LABS: Alanine Aminotransferase 19 units/L (7-56); Albumin 4.5 g/dL (3.9-5); BUN/Creatinine Ratio 23; Bilirubin,Direct < 0.2 mg/dL (0-0.2); Blood Urea Nitrogen 16 mg/dL (7-17); Calcium 10.3 mg/dL (8.4-10.2); Hemolysis Index 1
[2022-01-22] MEDS ORDERED: diphenhydrAMINE 50 MG/ML VIAL IV ONE (22:10)
[2022-01-22] MEDS ORDERED: diphenhydrAMINE 50 MG/ML VIAL ONE (22:10)
[2022-01-22] MEDS ORDERED: NALOXONE 2 MG/2 ML INJ ONE (22:33)
[2022-01-22] MEDS ORDERED: NALOXONE 2 MG/2 ML INJ IV ONE (22:35)
--- NOTE | 2022-01-22 23:07 | Cat Scan Report ---
CT ABDOMEN AND PELVIS WITH CONTRAST INDICATION / CLINICAL INFORMATION: Acute abdominal pain, intravenous and oral contras. TECHNIQUE: Axial CT images were obtained through the abdomen and pelvis after 100 cc of Omnipaque [address] scans at this location are performed using CT dose reduction for ALARA by means of automated exposure control. COMPARISON: None available. FINDINGS: LOWER CHEST: No significant abnormality. AORTA / ARTERIES: Mild atherosclerotic calcification without acute abnormality. IVC / VEINS: No significant abnormality. LYMPH NODES: No significant adenopathy. COLON: No significant abnormality. APPENDIX: No significant abnormality. STOMACH / SMALL BOWEL: Postsurgical changes suggesting a Florentin-en-Y gastric bypass. There is contrast refluxing into the biliopancreatic limb. There is also dilation of the proximal small bowel which has a transition point in the left hemiabdomen (series 2 image 112 and series 601 image 35). PERITONEUM: No free fluid. No free air. No fluid collection. LIVER: Multiple hepatic cysts. GALLBLADDER: Uncomplicated nephrolithiasis. BILE DUCTS: No significant abnormality. PANCREAS: No significant abnormality. SPLEEN: No significant abnormality. ADRENALS: No significant abnormality. RIGHT KIDNEY / URETER: No significant abnormality. LEFT KIDNEY / URETER: No significant abnormality. URINARY BLADDER: No significant abnormality. REPRODUCTIVE ORGANS: Uterus is absent. No significant adnexal abnormality. SKELETAL SYSTEM: No significant abnormality. ADDITIONAL FINDINGS: None. IMPRESSION: 1. Status post Florentin-en-Y gastric bypass with small bowel obstruction. The transition point is noted w ithin the left hemiabdomen as detailed above. 2. Additional findings as above. Signer Name: Javi Anders DO Signed: 01/22/2022 11:02 PM Workstation Name: [id number]
[2022-01-22] MEDS ORDERED: cefTRIAXone/NS 1 GM/50 ML 1 GM/50 ML BAG IV ONE (23:31)
[2022-01-22] MEDS ORDERED: CLINDAMYCIN 600 MG/50 mL 600 MG/50 ML BAG IV ONE (23:32)
--- NOTE | 2022-01-22 23:45 | XRay Report ---
CHEST 1 VIEW 01/22/2022 10:59 PM INDICATION / CLINICAL INFORMATION: post arrest, vomited. COMPARISON: None available. FINDINGS: SUPPORT DEVICES: None. HEART / MEDIASTINUM: No significant abnormality. LUNGS / PLEURA: No focal consolidation. There is mild pulmonary vascular indistinctness. No pneumotho rax. ADDITIONAL FINDINGS: No significant additional findings. IMPRESSION: 1. Findings suggesting mild pulmonary edema. Signer Name: Javi Anders DO Signed: 01/22/2022 11:40 PM Workstation Name: [id number]
[2022-01-23 00:28] LABS: ABG HCO3 24.2 mmol/L (20.0-26.0); ABG Methemoglobin 0.4 % (0.0-1.5); ABG Oxygen Saturation 96.7 % (95.0-99.0); ABG PCO2 47.9 mm Hg; ABG PH 7.32 pH Units (7.350-7.450); ABG PO2 91.3 mm Hg (80.0-90.0)
[2022-01-23 02:11] LABS: Anisocytosis 1+; Basophils % (Manual) 0 % (0.0-1.8); Eosinophils % (Manual) 0 % (0.0-4.3); Total Cells Counted 100
[2022-01-23 02:12] LABS: Platelet Estimate Consistent w Auto
[2022-01-23 10:02] VITALS: BP 95/55
== END 2022-01-23 11:08 | disposition short-term general hospital (02) ==
LOC: ED 18:56
DX: K56.609 Unspecified intestinal obstruction, unspecified as to partial versus complete obstruction (principal); I11.0 Hypertensive heart disease with heart failure; R09.2 Respiratory arrest; I50.9 Heart failure, unspecified; I26.99 Other pulmonary embolism without acute cor pulmonale; T40.601A Poisoning by unspecified narcotics, accidental (unintentional), initial encounter; R09.02 Hypoxemia; J69.0 Pneumonitis due to inhalation of food and vomit; M19.90 Unspecified osteoarthritis, unspecified site; Z90.710 Acquired absence of both cervix and uterus; Z98.890 Other specified postprocedural states; Y92.89 Other specified places as the place of occurrence of the external cause
CPT/HCPCS: 36415; 71045; 74177; 80048; 80076; 82803; 83690; 85007; 85025; 85610; 96365; 96367; 96372; 96375; 96376; 99291; J0696; J1170; J1200; J2310; J2405; J7030; J7502; Q9967